=== PATIENT | female | born 1930 | race Caucasian/White ===

== ENCOUNTER 2016-12-14 23:18 | Observation (INO) ==
[2016-12-15 00:09] LABS: Bilirubin,Urine Negative (Negative); Blood,Urine Negative (Negative); Color,Urine Dark Yellow (Yellow); Glucose,Urine (UA) Normal (Normal); Ketones,Urine Negative (Negative); Leukocyte Esterase,Urine Moderate (Negative); Nitrite,Urine Negative (Negative); PH,Urine 5.5 pH Units (5.0-8.0); Protein,Urine 30 mg/dL (Neg-Trace); Specific Gravity,Urine 1.027 (1.010-1.025)
[2016-12-15 00:11] LABS: Bacteria,Urine None Seen per hpf (None-Few); Clarity,Urine Hazy (Clear); Hyaline Casts,Urine None Seen per lpf (None-Few); Squamous Epithelial Cell,Urine Many per lpf (None-Few)
[2016-12-15 00:11] LABS: Basophils % 0.2 %; Eosinophils # 0.1 K/mcL (0.0-0.6); Eosinophils % 1.6 %; Hematocrit 41.2 % (35.3-44.9); Immature Granulocytes % 0.4 % (0-4); Immature Platelets 1.2 % (1.1-6.1); Lymphocytes # 0.7 K/mcL (0.6-4.6); Lymphocytes % 14.4 %; Mean Corpuscular HGB Conc 31.6 g/dL (31.6-35.5); Mean Corpuscular Hemoglobin 28.8 pg (28.0-33.3); Mean Corpuscular Volume 91.4 fL (83.0-100.0); Mean Platelet Volume 9.1 fL (9.4-12.4); Monocytes # 0.5 K/mcL (0.0-1.3); Monocytes % 9.5 %; Neutrophils # 3.7 K/mcL (1.6-8.9); Platelet Count 145 K/mcL (140-400); Red Blood Count 4.51 M/mcL (3.82-4.97); Red Cell Distribution Width 14.9 % (11.5-14.5); Segmented Neutrophils % 73.9 %
[2016-12-15 00:22] LABS: BUN/Creatinine Ratio 22 (6-26); Blood Urea Nitrogen 22 mg/dL (7-20); Calcium 8.8 mg/dL (8.6-10.8); Carbon Dioxide 27 mEq/L (19-29); Chloride 105 mEq/L (98-109); Glucose 115 mg/dL (70-99); Osmolality,Calculated 294 (280-300); Potassium 4.2 mEq/L (3.5-4.5); Sodium 140 mEq/L (136-145); eGFR For African Americans > 60 (> 60); eGFR For Non-African Americans 51 (> 60)
--- NOTE | 2016-12-15 00:59 | Emergency Department Note ---
Disposition Clinical Impression: Hospital-acquired pneumonia Disposition: Admitted As Inpatient Condition: Good Time of Disposition: 01:41 Altered Mental Status HPI - General Chief Complaint: ED Altered Mental Status Stated Complaint: AMS Time Seen by Provider: 12/14/16 23:26 Source: patient, EMS Mode of arrival: ambulatory Limitations: altered mental status Nursing Notes Reviewed: Yes Vital Signs Reviewed: Yes - History of Present Illness HPI Narrative: Patient presented for confusion evaluation, family states that she has been having a persistent UTI that has been treated with 2 different kinds of antibiotics without clear resolution. Patient is reportedly been having visual hallucinations recently. Patient was recently discharged after being in the hospital about 6 days for UTI. Family reports that she has also been falling; described as sliding down her chair without a free fall. MD complaint: altered mental status, confusion Onset (ago): week(s) Consistency of Symptoms: getting worse - Related Data Home Medications Medication Instructions Recorded Confirmed Calcium Carbonate [Calcium] 1,000 mg PO DAILY 11/08/16 11/08/16 Lisinopril [Zestril] 10 mg PO DAILY 11/08/16 11/08/16 Multivitamin [Multi-Day Vitamins] 1 each PO DAILY 11/08/16 11/08/16 [place]-3/Dha/Epa/Fish Oil [Fish Oil 1,000 mg PO DAILY 11/08/16 11/08/16 1,000 mg Softgel] Ranitidine HCl [Zantac] 150 mg PO BID 11/08/16 11/08/16 Previous Rx's Medication Instructions Recorded Aspirin 325 mg PO BID #30 tablet 11/12/16 Ciprofloxacin HCl [Cipro] 250 mg PO BID #10 tab 11/12/16 OxyCODONE/APAP 5/325 [Percocet 1 each PO Q6HR PRN #10 tablet 11/12/16 5/325 MG] Sulfamethoxazole/Trimeth DS 1 each PO BID #20 tablet 12/06/16 [Bactrim DS] Allergies Allergy/AdvReac Type Severity Reaction Status Date / Time Penicillins Allergy Hives Verified 12/14/16 23:27 iodine AdvReac Gastrointestinal Verified 12/14/16 23:27 Upset All systems ED: reviewed and negative except as stated. Constitutional: Denies: fever, chills, weakness Cardiovascular: Denies: chest pain, dyspnea on exertion Respiratory: Denies: cough, dyspnea, wheezes Gastrointestinal: Reports: diarrhea. Denies: abdominal pain, nausea, vomiting Genitourinary: Denies: urgency, dysuria Neurological: Reports: confusion Past Medical History - Past Medical History Attestation: Yes The following information was validated with the patient. Source: patient Medical history: Reports: dementia, myocardial infarction, renal disease, other Surgical history: Reports: appendectomy, breast surgery, cholecystectomy, hysterectomy Psychiatric history: Reports: anxiety, depression MANAGER RETENTION history: Reports: no MANAGER RETENTION history - Social History Smoking Status: Never smoker Smokeless Tobacco Status: No Alcohol use: Reports: none Drug use: Reports: none Physical Exam - General Limitations: altered mental status - Head Head exam: atraumatic, normocephalic - Eye Eye exam: Present: normal appearance - Neck Neck exam: Present: normal inspection, trachea midline - Chest Chest inspection: Present: normal inspection, symmetric chest wall rise. Absent : tenderness - Respiratory Respiratory exam: Present: normal lung sounds bilaterally. Absent: respiratory distress, wheezes - Abdominal Exam Abdominal exam: Present: soft, Non-Tender. Absent: distention, guarding - Neurological Exam Neurological exam: Present: alert Course Course Narrative: 85 yo female presented by family with complaint of confusion, and visual hallucinations. Patient is reported to have been treated previously for urinary tract infection, initially she was on Bactrim and that was changed to Macrobid when culture sensitivity results came back. Patient has also been coughing and having diarrhea. On exam, patient is confused, nontoxic appearing , vital signs stable and afebrile. Screen patient for infectious process, treat and most likely admit patient to the hospitalist group. Family states that patient might have dementia but has not been officially diagnosed. - Reevaluation(s) Reevaluation #1: Patient has a pneumonia on chest x-ray, IV antibiotics started in the ED, hospital-acquired pneumonia diagnosis. Patient admitted to the hospitalist. Vital Signs Temperature 97.6 F 12/14/16 23:19 Pulse Rate 87 12/14/16 23:19 Respiratory Rate 18 12/14/16 23:19 Blood Pressure 146/71 12/14/16 23:19 O2 Sat by Pulse Oximetry 97 12/14/16 23:19 Temperature 98.1 F 12/15/16 04:41 Pulse Rate 86 12/15/16 04:41 Respiratory Rate 16 12/15/16 04:41 Blood Pressure 147/71 12/15/16 04:41 O2 Sat by Pulse Oximetry 97 12/15/16 04:41 Oxygen Delivery Oxygen Delivery Nasal Cannula Altered Mental Status - Medical Records Medical records reviewed: Yes I reviewed the patient's medical records. - Lab Data Lab results reviewed: Yes I reviewed the patient's lab results. Result diagrams: 12/15/16 00:03 12/15/16 00:03 Lab Results 12/14/16 12/15/16 12/15/16 Range/Units 23:53 00:03 00:03 WBC 5.1 (4.3-11.1) K/mcL RBC 4.51 (3.82-4.97) M/mcL Hgb 13.0 (11.5-15.4) g/dL Hct 41.2 (35.3-44.9) % MCV 91.4 (83.0-100.0) fL MCH 28.8 (28.0-33.3) pg MCHC 31.6 (31.6-35.5) g/dL RDW 14.9 H (11.5-14.5) % Plt Count 145 (140-400) K/mcL MPV 9.1 L (9.4-12.4) fL Immature Gran % 0.4 (0-4) % Seg Neutrophils % 73.9 % Lymphocytes % 14.4 % Monocytes % 9.5 % Eosinophils % 1.6 % Basophils % 0.2 % Neutrophils # 3.7 (1.6-8.9) K/mcL Lymphocytes # 0.7 (0.6-4.6) K/mcL Monocytes # 0.5 (0.0-1.3) K/mcL Eosinophils # 0.1 (0.0-0.6) K/mcL Basophils # 0.0 (0.0-0.2) K/mcL Immature Plt Fraction 1.2 (1.1-6.1) % Sodium 140 (136-145) mEq/L Potassium 4.2 (3.5-4.5) mEq/L Chloride 105 (98-109) mEq/L Carbon Dioxide 27 (19-29) mEq/L BUN 22 H (7-20) mg/dL Creatinine 1.02 (0.57-1.11) mg/dL Est GFR ( Amer) > 60 (> 60) Est GFR (Non-Af Amer) 51 L (> 60) BUN/Creatinine Ratio 22 (6-26) Glucose 115 H (70-99) mg/dL Calculated Osmolality 294 (280-300) Calcium 8.8 (8.6-10.8) mg/dL Troponin I (0-0.03) ng/mL Urine Color Dark Yellow (Yellow) Urine Clarity Hazy A (Clear) Urine pH 5.5 (5.0-8.0) pH Units Ur Specific [place] 1.027 H (1.010-1.025) Urine Protein 30 H (Neg-Trace) mg/dL Urine Glucose (UA) Normal (Normal) mg/dL Urine Ketones Negative (Negative) mg/dL Urine Blood Negative (Negative) Urine Nitrite Negative (Negative) Urine Bilirubin Negative (Negative) Urine Urobilinogen 2.0 H (Normal) mg/dL Ur Leukocyte Esterase Moderate H (Negative) Urine Microscopic RBC 5-15 H (0-3) per hpf Urine Microscopic WBC 5-15 H (0-3) per hpf Ur Squamous Epith Cells Many H (None-Few) per lpf Urine Bacteria None Seen (None-Few) per hpf Hyaline Casts None Seen (None-Few) per lpf Ur Culture Indicated? YES A (NO) 12/15/16 Range/Units 00:03 WBC (4.3-11.1) K/mcL RBC (3.82-4.97) M/mcL Hgb (11.5-15.4) g/dL Hct (35.3-44.9) % MCV (83.0-100.0) fL MCH (28.0-33.3) pg MCHC (31.6-35.5) g/dL RDW (11.5-14.5) % Plt Count (140-400) K/mcL MPV (9.4-12.4) fL Immature Gran % (0-4) % Seg Neutrophils % % Lymphocytes % % Monocytes % % Eosinophils % % Basophils % % Neutrophils # (1.6-8.9) K/mcL Lymphocytes # (0.6-4.6) K/mcL Monocytes # (0.0-1.3) K/mcL Eosinophils # (0.0-0.6) K/mcL Basophils # (0.0-0.2) K/mcL Immature Plt Fraction (1.1-6.1) % Sodium (136-145) mEq/L Potassium (3.5-4.5) mEq/L Chloride (98-109) mEq/L Carbon Dioxide (19-29) mEq/L BUN (7-20) mg/dL Creatinine (0.57-1.11) mg/dL Est GFR ( Amer) (> 60) Est GFR (Non-Af Amer) (> 60) BUN/Creatinine Ratio (6-26) Glucose (70-99) mg/dL Calculated Osmolality (280-300) Calcium (8.6-10.8) mg/dL Troponin I 0.01 (0-0.03) ng/mL Urine Color (Yellow) Urine Clarity (Clear) Urine pH (5.0-8.0) pH Units Ur Specific [place] (1.010-1.025) Urine Protein (Neg-Trace) mg/dL Urine Glucose (UA) (Normal) mg/dL Urine Ketones (Negative) mg/dL Urine Blood (Negative) Urine Nitrite (Negative) Urine Bilirubin (Negative) Urine Urobilinogen (Normal) mg/dL Ur Leukocyte Esterase (Negative) Urine Microscopic RBC (0-3) per hpf Urine Microscopic WBC (0-3) per hpf Ur Squamous Epith Cells (None-Few) per lpf Urine Bacteria (None-Few) per hpf Hyaline Casts (None-Few) per lpf Ur Culture Indicated? (NO) - Radiology Data Radiology results reviewed: Yes I reviewed the patient's radiology results. Attestation Statement - Attestation Attestation: For this encounter, I have reviewed the resident, ANIMATOR, or PA documentation, treatment plan, and medical decision making; and I have had face to face time with this patient. 85-year-old female brought in by family for concerns of altered mental status. Son states he tried to help patient up to the bathroom today when she slid to the ground, did not hit head or have loss of consciousness. While on the ground and patient was altered, having visual hallucinations, seeing her . Family states that this is very similar to previous presentations with urinary tract infections. Patient has been treated with antibiotics twice over the past 2 months. She has also had a cough over the past week that is not productive of sputum. Urinalysis has mildly elevated blood cells. Chest x-ray reveals possible pneumonia. She is started on antibiotics which would cover both pneumonia and urinary tract infection. Patient will be admitted to the hospital for further care and evaluation of altered mental status with likely community-acquired pneumonia.
[2016-12-15] MEDS ORDERED: Levofloxacin 750 MG/150 ML 750 MG/150 ML BAG IVPB ONE (01:10)
[2016-12-15] MEDS ORDERED: Naloxone 0.4 MG/ML INJ IVP PRN (04:34)
--- NOTE | 2016-12-15 04:36 | Internal Med History&Physical ---
Date of Encounter: 12/15/16 Time of Encounter: 04:20 Assessment and Plan (1) Altered mental status Current visit: Yes Status: Acute The patient has a decline in mental status per the family with hallucinations of her and delusions of having done things that she did not do. UTI vs. Sundowning vs. Undiagnosed dementia Patient has dementia listed in PMH, but family members state that she has never truly been diagnosed with dementia. Will assess change in mentation with treatment of acute bronchitis and possible UTI. Unable to ascertain Code status for certain. The son stated that he feels sure that his mom is a DNR, but did not know about intubation status. He stated he could bring paperwork with the patient's wishes tomorrow. Please reassess during the day when the son has the paperwork. Qualifiers: Altered mental status type: delirium Qualified Code(s): R41.0 - Disorientation, unspecified (2) Bronchitis Current visit: Yes Status: Acute The patient is afebrile and WBCs are 5.1, unlikely productive cough is due to a pneumonia. Chest XR: left greater than right basilar airspace disease. Lungs were clear to auscultation. Continue Ceftriaxone. (3) Urinary tract infection Current visit: No Status: Acute Probable UTI. The patient just had diagnosis of UTI starting last Saturday, was started on Bactrim from Saturday-Saturday and then was switch to Macrobid from Saturday until today. UA appears equivocal. Urine Culture pending and was taken in the ED. Continue Ceftriaxone. Qualifiers: Urinary tract infection type: acute cystitis Hematuria presence: with hematuria Qualified Code(s): N30.01 - Acute cystitis with hematuria (4) DVT prophylaxis Current visit: Yes Status: Acute SQ Heparin (5) HTN (hypertension) Current visit: No Status: Chronic Currently well controlled. Continue Lisinopril Qualifiers: Hypertension type: essential hypertension Qualified Code(s): I10 - Essential (primary) hypertension (6) Diarrhea Current visit: Yes Status: Acute Patient has been having what is described as loose stools for the past 2 days, but not described as liquid. C. Diff toxin ordered by the ED, has not been collected yet. Will treat accordingly pending results. Qualifiers: Diarrhea type: unspecified type Qualified Code(s): R19.7 - Diarrhea, unspecified Internal Medicine - H&P: HPI Chief complaint: AMS Admitted From: Emergency Dept Plans for Post Hospital Care: Home History of present illness: Ms. Gibbs is a 85 year old female with PMH significant for renal disease, hypertension, anxiety, depression, and previous OR in 2006 who presented to the ED for AMS. The patient's family is present and report that she has been having worsening mental function daily for the past week without drastic changes. She has had some increased confusion at night as well for a long time according to family members. They still believe her to be declining at this time in a gradual manner. The patient was reportedly diagnosed with a UTI one week ago at an urgent care and was treated with bactrim from Saturday-Saturday, she was then switched to Macrobid after cultures had returned. She was on Macrobid from Saturday until today. The patient has started complaining of a cough for the past couple of days that is only intermittently productive of a yellow sputum, and has been having diarrhea for the past 2 days. The diarrhea is described as loose stools, but not liquid in nature. Additionally the patient has been hallucinating at times seeing her who had years ago. She was not actively hallucinating while I was in the room. However the patient did seem confused at times and did refer to family members by inappropriate names despite being told multiple times the correct names. The family members state that she has also been under the delusion that she has been cooking all night. Past Med Surg Social Fam HX - Past Medical History Medical history: dementia, hypertension, myocardial infarction, renal disease, other Psychiatric history: anxiety, depression - Past Surgical History Surgical History: appendectomy, breast surgery (lumpectomy), cholecystectomy, hysterectomy - Social History Smoking Status: Never smoker Smokeless Tobacco Status: No Alcohol use: none Drug use: none - Family History Father Living Status: Hx Family Cancer: Yes (LIVER CANCER) Son Adopted: [place]: Silviano Gibbs Age: 56 Family Member Ethnicity: Non- Living Status: Still Living Hx Family Cardiac Disorders: No Hx Family Respiratory Disorders: No Hx Family Cancer: No Hx Family GI Disorders: Yes (Acid Reflux) Hx Family Genitourinary Disorders: No Hx Family Endocrine Disorder: Yes (partial tyroidectomy) Hx Family Musculoskeletal Disorders: Yes (Arthritis) Hx Family Neuromuscular Disorders: No Hx Family Neurologic Disorders: No Hx Family HEENT Disorders: No Hx Family Autoimmune Disorders: No Hx Family Reproductive Disorders: No Hx Family Psychosocial Disorders: No Hx Family Medical Disorders: No Internal Medicine - H&P: Meds Calcium Carbonate [Calcium] 1,000 mg PO DAILY 11/08/16 [History] Lisinopril [Zestril] 10 mg PO DAILY 11/08/16 [History] Multivitamin [Multi-Day Vitamins] 1 each PO DAILY 11/08/16 [History] [place]-3/Dha/Epa/Fish Oil [Fish Oil 1,000 mg Softgel] 1,000 mg PO DAILY 11/08/16 [History] Ranitidine HCl [Zantac] 150 mg PO BID 11/08/16 [History] Aspirin 325 mg PO BID #30 tablet 11/12/16 [Rx] Ciprofloxacin HCl [Cipro] 250 mg PO BID #10 tab 11/12/16 [Rx] OxyCODONE/APAP 5/325 [Percocet 5/325 MG] 1 each PO Q6HR PRN #10 tablet 11/12/16 [Rx] Sulfamethoxazole/Trimeth DS [Bactrim DS] 1 each PO BID #20 tablet 12/06/16 [Rx] Allergies Penicillins Allergy (Verified 12/14/16 23:27) Hives iodine Adverse Reaction (Verified 12/14/16 23:27) Gastrointestinal Upset All Systems PM: A 10-system review of systems was performed and is negative for pertinent findings except as documented above in the HPI. - Constitutional Constitutional: no chills, no fever(s), no night sweats - EENT Eyes: no change in vision, no discharge, no pain, no photophobia Ears: no ear discharge, no ear pain, no tinnitus Nose, mouth and throat: no dysphagia, no nasal discharge, no neck pain, no sore throat - Cardiovascular Cardiovascular ROS IM: no chest pain, no diaphoresis, no dyspnea, no lightheadedness, no palpitations, no syncope - Respiratory Respiratory: cough, no dyspnea, no wheezing, no excessive phlegm production - Gastrointestinal Gastrointestinal: diarrhea, no abdominal pain, no hematemesis, no hematochezia, no melena, no nausea, no vomiting - Genitourinary Genitourinary: no change in urinary stream, no dysuria, no flank pain, no hematuria - Musculoskeletal Musculoskeletal ROS IM: no numbness, no tingling - Integumentary Integumentary IM: no rash, no unusual bruising - Neurological Neurological ROS: confusion, no convulsions, no focal weakness, no numbness, no tingling, no tremor(s) - Psychiatric Psychiatric: behavioral changes, visual hallucinations - Hematologic/Lymphatic Hematologic/Lymphatic: no easy bruising - Constitutional Vitals: Temp Pulse Resp BP Pulse Ox 97.6 F 87 18 131/74 96 12/14/16 23:19 12/15/16 03:32 12/15/16 04:08 12/15/16 04:08 12/15/16 03:32 General appearance: Present: A&O X 2 (not oriented to time) - Head Head exam: Present: atraumatic, normocephalic - Eye Eye exam: Present: EOMI, PERRL, conjuntiva pink, sclera anicteric Pupils: Present: PERRL - Neck Neck exam general surgery: Present: supple, trachea midline. Absent: lymphadenopathy - Respiratory Respiratory exam: Present: CTAB (Coughing present with deep inspiration at times ). Absent: accessory muscle use, rales, rhonchi, wheezes - Cardiovascular Cardiovascular exam: Present: RRR, +S1, +S2. Absent: diastolic murmur, gallop, rubs, systolic murmur - GI/Abdominal GI/Abdominal exam: Present: normal bowel sounds, soft, no peritoneal signs. Absent: distended, tenderness - Extremities Exam Extremities exam: Present: warm, radial pulses palpable and symetrical. Absent : calf tenderness, cyanotic, pedal edema - Neurological Exam Neurological exam: Present: CN II-XII intact, no focal deficits. Absent: pronater drift, facial droop, speech deficit - Skin Skin exam: Present: dry, intact Internal Med - H&P Results - Labs CBC & Chem 7: 12/15/16 00:03 12/15/16 00:03 - Attending Attestation I examined this patient and my medical decision-making was reviewed with the PRECIPITATOR/PA/Advanced Practice Nurse/Resident Physician. I agree with the documented findings, disposition and treatment plan as described except to the extent set forth below.
[2016-12-15] MEDS: *HR* OxyCODONE/APAP 5/325 TABLET PO PRN (05:13)
[2016-12-15] MEDS ORDERED: Famotidine 20 MG TABLET PO SCH (07:30)
[2016-12-15] MEDS: Aspirin 325 MG TABLET PO SCH ×2 (07:36→19:55)
[2016-12-15] MEDS: *HR* Heparin 5,000 UNIT/ML VIAL SQ SCH ×2 (07:37→15:06)
--- NOTE | 2016-12-15 11:30 | Event Note ---
<Megan Draper - Last Filed: 12/15/16 11:26> Date of Encounter: 12/15/16 Time of Encounter: 08:15 Ms. Suresh presented to ED with AMS, cough, and diarrhea. She is accompanied by no family in the room this morning. Pt is oriented to person and place, but unable to recall date and states that she is unsure of why she was brought to the hospital in the first place. Pt admits to having a cough which is productive intermittently with mostly white sputum. She denies having any chest pain, shortness of breath, urinary symptoms, nausea, or vomiting. Exam: Head: normocephalic, atraumatic Eyes: sclera anicteric, PERRL ENT: Mucous membranes moist Neck: Supple, trachea midline Lungs: CTAB, no rhonchi, rales, wheezing Cardiac: RRR, +S1, +S2 Abdomen: Bowel sounds normal, soft, nontender Extremities: No pedal edema, warm, radial pulses palpable and symmetrical Neuro: No focal deficits Skin: Dry, intact A/P: Altered Mental Status: Decline in mental status per family. Dementia is listed in PMH but family reports this has never truly been diagnosed Possibly due to UTI vs. undiagnosed dementia Urinalysis with evidence of UTI, cultures pending. Rocephin for antibiotic coverage now, will adjust based on sensitivities Pneumonia: CXR demonstrated Left greater than Right basilar airspace disease Will add Azithromycin for antibiotic coverage UTI: Pt had diagnosis of UTI starting last Saturday, was started on Bactrim from Saturday -Saturday, then switched to Macrobid from Saturday until today. Urinalysis suggestive of UTI, urine cultures are pending, Rocephin for antibiotic coverage now, will adjust based on sensitivities Diarrhea: Pt has been having loose stools for the past 2 day, not described as liquid C.Diff toxin ordered, but not yet collected Will treat pending results HTN: Continue home medications DVT prophylaxis: Heparin SQ <Mark Ron - Last Filed: 12/15/16 19:43> Date of Encounter: 12/15/16 I examined this patient and my medical decision-making was reviewed with the DIRECTOR VIDEO/PA/Advanced Practice Nurse/Resident Physician. I agree with the documented findings, disposition and treatment plan as described except to the extent set forth below.
[2016-12-15] MEDS: Azithromycin 500 MG in D5% in Water 250 ML IVPB SCH (11:39)
[2016-12-16] MEDS: *HR* Heparin 5,000 UNIT/ML VIAL SQ SCH ×4 (00:26→23:03)
[2016-12-16 04:29] LABS: Basophils % 0.4 %; Eosinophils # 0.2 K/mcL (0.0-0.6); Eosinophils % 3.8 %; Hematocrit 36.4 % (35.3-44.9); Hemoglobin 11.6 g/dL (11.5-15.4); Immature Granulocytes % 0.4 % (0-4); Lymphocytes # 1.8 K/mcL (0.6-4.6); Mean Corpuscular HGB Conc 31.9 g/dL (31.6-35.5); Mean Corpuscular Hemoglobin 29.1 pg (28.0-33.3); Mean Corpuscular Volume 91.2 fL (83.0-100.0); Mean Platelet Volume 9.5 fL (9.4-12.4); Monocytes # 0.6 K/mcL (0.0-1.3); Monocytes % 13.3 %; Neutrophils # 1.9 K/mcL (1.6-8.9); Platelet Count 132 K/mcL (140-400); Red Blood Count 3.99 M/mcL (3.82-4.97); Segmented Neutrophils % 42.1 %
[2016-12-16 04:43] LABS: BUN/Creatinine Ratio 25 (6-26); Blood Urea Nitrogen 21 mg/dL (7-20); Calcium 8.3 mg/dL (8.6-10.8); Carbon Dioxide 24 mEq/L (19-29); Chloride 107 mEq/L (98-109); Glucose 109 mg/dL (70-99); Osmolality,Calculated 292 (280-300); Potassium 4.3 mEq/L (3.5-4.5); Sodium 139 mEq/L (136-145); eGFR For African Americans > 60 (> 60); eGFR For Non-African Americans > 60 (> 60)
[2016-12-16] MEDS: Famotidine 20 MG TABLET PO SCH (06:31)
--- NOTE | 2016-12-16 08:00 | Internal Med Progress Note ---
<Megan Draper - Last Filed: 12/16/16 12:16> Date of Encounter: 12/16/16 Time of Encounter: 07:15 - Assessment and plan (1) Altered mental status Current Visit: Yes Status: Acute Assessment and plan: Decline in mental status per family. Dementia has never truly been diagnosed although listed in PMH Possibly due to UTI vs undiagnosed dementia Urine cultures demonstrated no growth, pt was on antibiotics prior to admission to the hospital Qualifiers: Altered mental status type: delirium Qualified Code(s): R41.0 - Disorientation, unspecified (2) Pneumonia Current Visit: Yes Status: Acute Assessment and plan: CXR demonstrated Left greater than right basilar airspace disease Rocephin and Azithromycin for antibiotic coverage Qualifiers: Pneumonia type: due to unspecified organism Laterality: bilateral Lung location: lower lobe of lung Qualified Code(s): J18.9 - Pneumonia, unspecified organism (3) Urinary tract infection Current Visit: No Status: Acute Assessment and plan: Pt had diagnosis of UTI starting last Saturday, was started on Bactrim from Saturday -Saturday, then switched to Macrobid from Saturday until admission Urinalysis was suggestive of UTI, urine cultures demonstrated no growth, pt was on antibiotics prior to admission Qualifiers: Urinary tract infection type: acute cystitis Hematuria presence: with hematuria Qualified Code(s): N30.01 - Acute cystitis with hematuria (4) Diarrhea Current Visit: Yes Status: Acute Assessment and plan: C.Diff toxin was negative Will continue to monitor Qualifiers: Diarrhea type: unspecified type Qualified Code(s): R19.7 - Diarrhea, unspecified (5) HTN (hypertension) Current Visit: No Status: Chronic Assessment and plan: Continue home medications Qualifiers: Hypertension type: essential hypertension Qualified Code(s): I10 - Essential (primary) hypertension (6) DVT prophylaxis Current Visit: Yes Status: Acute Assessment and plan: Heparin SQ - Subjective Interval history: Pt is oriented to person this morning. She is aware she is in the hospital but does not know why or which hospital she is in. She knows that today is her birthday but is unable to recall the year. She states that she is having no pain at this time. Pt reports she is feeling weak and tired. She denies nausea , vomiting, diarrhea, chest pain, shortness of breath. Valdez catheter is in place. - Constitutional Vitals: Temp Pulse Resp BP Pulse Ox 98.0 F 65 17 143/80 96 12/16/16 07:23 12/16/16 07:23 12/16/16 07:23 12/16/16 07:23 12/16/16 07:23 General appearance: Present: A&O X 2 (Pt knows name, aware she is in hospital but not sure which one and cannot recall year) - Head Head exam: Present: atraumatic, normocephalic - Eye Eye exam: Present: PERRL, conjuntiva pink, sclera anicteric Pupils: Present: PERRL - Neck Neck exam general surgery: Present: supple, trachea midline. Absent: lymphadenopathy - Respiratory Respiratory exam: Present: rhonchi (Bibasilar) - Cardiovascular Cardiovascular exam: Present: RRR, +S1, +S2. Absent: diastolic murmur, gallop, rubs, systolic murmur - GI/Abdominal GI/Abdominal exam: Present: normal bowel sounds, soft, no peritoneal signs. Absent: distended, tenderness - Extremities Exam Extremities exam: Present: warm, radial pulses palpable and symetrical. Absent : calf tenderness, cyanotic, pedal edema - Neurological Exam Neurological exam: Present: alert, CN II-XII intact, no focal deficits. Absent : pronater drift, facial droop, speech deficit - Skin Skin exam: Present: dry, intact. Absent: rash Internal Medicine: Result - Labs CBC & Chem 7: 12/16/16 03:42 12/16/16 03:42 Labs: Short CBC 12/16/16 Range/Units 03:42 WBC 4.5 (4.3-11.1) K/mcL Hgb 11.6 (11.5-15.4) g/dL Hct 36.4 (35.3-44.9) % Plt Count 132 L (140-400) K/mcL Neutrophils # 1.9 (1.6-8.9) K/mcL BMP 12/16/16 03:42 Sodium 139 Potassium 4.3 Chloride 107 Carbon Dioxide 24 BUN 21 H Creatinine 0.84 Glucose 109 H Calcium 8.3 L Consult Discharge Plan - Plan Referrals: Rob Cole MD [Primary Care Provider] - <Mark Ron - Last Filed: 12/16/16 15:58> Date of Encounter: 12/16/16 - Assessment and plan (1) Pneumococcal pneumonia Current Visit: Yes Status: Acute Assessment and plan: Coronary coronary pneumonia likely caused by pneumococcus. We will treat her with ceftriaxone and azithromycin. Follow-up blood cultures and sensitivities. Qualifiers: Laterality: bilateral Lung location: lower lobe of lung Qualified Code(s) : J13 - Pneumonia due to Streptococcus pneumoniae - Constitutional Vitals: Temp Pulse Resp BP Pulse Ox 97.5 F L 70 16 136/72 95 12/16/16 14:41 12/16/16 14:41 12/16/16 14:41 12/16/16 14:41 12/16/16 14:41 Internal Medicine: Result - Labs CBC & Chem 7: 12/16/16 03:42 12/16/16 03:42 Labs: Short CBC 12/16/16 Range/Units 03:42 WBC 4.5 (4.3-11.1) K/mcL Hgb 11.6 (11.5-15.4) g/dL Hct 36.4 (35.3-44.9) % Plt Count 132 L (140-400) K/mcL Neutrophils # 1.9 (1.6-8.9) K/mcL BMP 12/16/16 03:42 Sodium 139 Potassium 4.3 Chloride 107 Carbon Dioxide 24 BUN 21 H Creatinine 0.84 Glucose 109 H Calcium 8.3 L - Attending Attestation I examined this patient and my medical decision-making was reviewed with the Resident Physician. I agree with the documented findings, disposition and treatment plan as described except to the extent set forth below. The patient's mental status has improved today. She is awake alert oriented and conversant. She has mild dementia. Plan we will continue treatment for healthcare associated pneumonia likely secondary to pneumococcus infection with ceftriaxone and azithromycin. Continue treatment for UTI. Discontinue Valdez catheter. We will get PT OT and psychiatric social worker supervisor consult.
[2016-12-16] MEDS: Aspirin 325 MG TABLET PO SCH ×2 (09:10→21:08)
[2016-12-16] MEDS: Azithromycin 500 MG in D5% in Water 250 ML IVPB SCH (09:59)
[2016-12-16] MEDS: Ipratropium/Albuterol Neb 3 ML IH SCH ×3 (10:59→22:46)
[2016-12-16] MEDS: MethylPREDNISolone 40 MG/ML VIAL IVP SCH ×2 (18:36→23:03)
[2016-12-17] MEDS: Ipratropium/Albuterol Neb 3 ML IH SCH ×4 (03:51→22:58)
[2016-12-17 04:51] LABS: Hematocrit 39.6 % (35.3-44.9); Hemoglobin 12.6 g/dL (11.5-15.4); Mean Corpuscular HGB Conc 31.8 g/dL (31.6-35.5); Mean Platelet Volume 9.5 fL (9.4-12.4); Platelet Count 131 K/mcL (140-400); Red Blood Count 4.35 M/mcL (3.82-4.97); Red Cell Distribution Width 14.6 % (11.5-14.5)
[2016-12-17 05:10] LABS: BUN/Creatinine Ratio 24 (6-26); Blood Urea Nitrogen 25 mg/dL (7-20); Calcium 8.5 mg/dL (8.6-10.8); Carbon Dioxide 23 mEq/L (19-29); Chloride 105 mEq/L (98-109); Glucose 256 mg/dL (70-99); Osmolality,Calculated 303 (280-300); Potassium 4.4 mEq/L (3.5-4.5); Sodium 140 mEq/L (136-145); eGFR For African Americans > 60 (> 60); eGFR For Non-African Americans 50 (> 60)
[2016-12-17 06:05] LABS: Lymphocytes # 0.8 K/mcL (0.6-4.6); Monocytes # 0.1 K/mcL (0.0-1.3); Neutrophils # 2.8 K/mcL (1.6-8.9); Platelet Estimate Slight Decrease (Normal); Reactive Lymphocytes Present (Not Present)
[2016-12-17] MEDS: *HR* Heparin 5,000 UNIT/ML VIAL SQ SCH ×3 (08:07→23:36)
[2016-12-17] MEDS: Famotidine 20 MG TABLET PO SCH (08:07)
[2016-12-17] MEDS: Aspirin 325 MG TABLET PO SCH ×2 (08:07→20:11)
[2016-12-17] MEDS: MethylPREDNISolone 40 MG/ML VIAL IVP SCH (08:08)
[2016-12-17] MEDS ORDERED: D5% in Water 1,000 ML IV PRN (08:53)
[2016-12-17] MEDS ORDERED: *HR* Dextrose 50 % in Water (Syg) 50 ML SYRINGE IVP PRN (08:53)
[2016-12-17] MEDS ORDERED: Dextrose Gel 15 GM PO PRN ×2 (08:53)
[2016-12-17] MEDS ORDERED: Insulin DETEMIR 100 UNIT/ML X5UNITS SQ SCH (09:00)
--- NOTE | 2016-12-17 09:29 | Electrocardiograph Report ---
[facility] Test Date: 2016-12-14 Pat Name: Angelita Gibbs Department: 105 Room: 3B11 Gender: F Stunt Person: KEENAN : [id number] Requested By: Vj Jerome Order Number: [id number] Reading MD: Anibal Whiting MD Measurements Intervals [place] Rate: 82 P: 42 RI: 175 QRS: 12 QRSD: 98 T: 61 QT: 360 QTc: 398 Interpretive Statements SINUS RHYTHM Electronically Signed On 12-17-16 09:28:03 EST by Anibal Whiting MD
[2016-12-17] MEDS: Azithromycin 500 MG in D5% in Water 250 ML IVPB SCH (09:57)
[2016-12-17] MEDS: Insulin LISPRO 300 UNITS/3 ML VIAL SQ SCH ×2 (13:42→18:15)
--- NOTE | 2016-12-17 19:33 | Internal Med Progress Note ---
Date of Encounter: 12/17/16 Time of Encounter: 15:00 - Assessment and plan (1) Pneumococcal pneumonia Current Visit: Yes Status: Acute Assessment and plan: Community-acquired pneumonia likely caused by pneumococcus. We will treat her with ceftriaxone and azithromycin. Follow-up blood cultures and sensitivities. Qualifiers: Laterality: bilateral Lung location: lower lobe of lung Qualified Code(s) : J13 - Pneumonia due to Streptococcus pneumoniae (2) Physical deconditioning Current Visit: Yes Status: Acute Assessment and plan: PTOT. Social work consult for placement. She is agreeable to go to subacute rehabilitation. (3) Morbid obesity with BMI of 40.0-44.9, adult Current Visit: Yes Status: Acute Assessment and plan: Outpatient follow-up. Exercise regimen. (4) Altered mental status Current Visit: Yes Status: Acute Assessment and plan: She likely has mild dementia. Physical decline likely related to acute infection. Now has improved, close to baseline. We will avoid sedative medication. Decline in mental status per family. Dementia has never truly been diagnosed although listed in PMH Possibly due to UTI vs undiagnosed dementia Urine cultures demonstrated no growth, pt was on antibiotics prior to admission to the hospital Qualifiers: Altered mental status type: delirium Qualified Code(s): R41.0 - Disorientation, unspecified (5) Urinary tract infection Current Visit: No Status: Acute Assessment and plan: Pt had diagnosis of UTI starting last Saturday, was started on Bactrim from Saturday -Saturday, then switched to Macrobid from Saturday until admission Urinalysis was suggestive of UTI, urine culture during this admission showed no growth, however she had received several courses of antibiotics previously. On review of her medical record she had a urine culture prior to this admission in December 06 which grew enterococcus sensitive to ampicillin. We will continue with ceftriaxone which should be adequate to cover enterococcus. Qualifiers: Urinary tract infection type: acute cystitis Hematuria presence: with hematuria Qualified Code(s): N30.01 - Acute cystitis with hematuria (6) HTN (hypertension) Current Visit: No Status: Chronic Assessment and plan: Continue home medications Qualifiers: Hypertension type: essential hypertension Qualified Code(s): I10 - Essential (primary) hypertension (7) DVT prophylaxis Current Visit: Yes Status: Acute Assessment and plan: Heparin SQ - Subjective Interval history: Patient's mental status has improved significantly. She denies headache and vision loss. She presented 2 days ago with altered mental status was thought to be secondary to UTI, now she is close to baseline. - Constitutional Vitals: Temp Pulse Resp BP Pulse Ox 98.2 F 85 16 171/71 99 12/17/16 16:14 12/17/16 16:14 12/17/16 16:20 12/17/16 16:14 12/17/16 16:20 General appearance: Present: A&O X 2 (Pt knows name, aware she is in hospital but not sure which one and cannot recall year) - Respiratory Respiratory exam: Present: CTAB. Absent: accessory muscle use, rales, rhonchi, wheezes - Cardiovascular Cardiovascular exam: Present: RRR, +S1, +S2. Absent: diastolic murmur, gallop, rubs, systolic murmur - GI/Abdominal GI/Abdominal exam: Present: normal bowel sounds, soft, no peritoneal signs. Absent: distended, tenderness - Extremities Exam Extremities exam: Present: warm, radial pulses palpable and symetrical. Absent : calf tenderness, cyanotic, pedal edema - Skin Skin exam: Present: dry, intact Internal Medicine: Result - Labs CBC & Chem 7: 12/17/16 04:16 12/17/16 04:16 Labs: Short CBC 12/17/16 Range/Units 04:16 WBC 3.7 L (4.3-11.1) K/mcL Hgb 12.6 (11.5-15.4) g/dL Hct 39.6 (35.3-44.9) % Plt Count 131 L (140-400) K/mcL Neutrophils # 2.8 (1.6-8.9) K/mcL BMP 12/17/16 04:16 Sodium 140 Potassium 4.4 Chloride 105 Carbon Dioxide 23 BUN 25 H Creatinine 1.04 Glucose 256 H Calcium 8.5 L Consult Discharge Plan - Plan Referrals: Rob Cole MD [Primary Care Provider] - 01/02/17 9:40 am
[2016-12-18] MEDS: Ipratropium/Albuterol Neb 3 ML IH SCH ×3 (03:53→16:24)
[2016-12-18 04:54] LABS: Basophils % 0.1 %; Eosinophils % 0.1 %; Hematocrit 36.5 % (35.3-44.9); Hemoglobin 11.8 g/dL (11.5-15.4); Immature Granulocytes % 0.4 % (0-4); Lymphocytes # 1.7 K/mcL (0.6-4.6); Mean Corpuscular HGB Conc 32.3 g/dL (31.6-35.5); Mean Corpuscular Hemoglobin 29.2 pg (28.0-33.3); Mean Corpuscular Volume 90.3 fL (83.0-100.0); Mean Platelet Volume 9.7 fL (9.4-12.4); Monocytes # 0.6 K/mcL (0.0-1.3); Monocytes % 6.2 %; Neutrophils # 7.7 K/mcL (1.6-8.9); Platelet Count 162 K/mcL (140-400); Red Blood Count 4.04 M/mcL (3.82-4.97); Red Cell Distribution Width 14.9 % (11.5-14.5); Segmented Neutrophils % 76.2 %
[2016-12-18 05:02] LABS: BUN/Creatinine Ratio 35 (6-26); Blood Urea Nitrogen 28 mg/dL (7-20); Calcium 8.2 mg/dL (8.6-10.8); Carbon Dioxide 25 mEq/L (19-29); Chloride 107 mEq/L (98-109); Glucose 144 mg/dL (70-99); Osmolality,Calculated 296 (280-300); Potassium 3.9 mEq/L (3.5-4.5); Sodium 139 mEq/L (136-145); eGFR For African Americans > 60 (> 60); eGFR For Non-African Americans > 60 (> 60)
[2016-12-18] MEDS: Insulin LISPRO 300 UNITS/3 ML VIAL SQ SCH ×3 (09:02→20:23)
[2016-12-18] MEDS: Aspirin 325 MG TABLET PO SCH (09:12)
[2016-12-18] MEDS: *HR* Heparin 5,000 UNIT/ML VIAL SQ SCH ×2 (09:13→19:02)
[2016-12-18] MEDS: Famotidine 20 MG TABLET PO SCH (09:13)
[2016-12-18] MEDS: Azithromycin 500 MG in D5% in Water 250 ML IVPB SCH (10:34)
[2016-12-18] MEDS: *HR* OxyCODONE/APAP 5/325 TABLET PO PRN (10:40)
--- NOTE | 2016-12-18 12:12 | Internal Med Progress Note ---
Date of Encounter: 12/18/16 Time of Encounter: 09:30 - Assessment and plan (1) Pneumococcal pneumonia Current Visit: Yes Status: Acute Assessment and plan: Community-acquired pneumonia likely caused by pneumococcus. We will treat her with ceftriaxone and azithromycin. Follow-up blood cultures and sensitivities. On examination, patient with fair to good aeration throughout. She denies shortness of breath. She is on room air. OT and PT have recommended ECF placement, awaiting placement. She states she lives with her son and his . sales agent business services on board. Medically speaking, she is ready for discharge, awaiting ECF placement. ITS Impressions Chest X-Ray 12/14/16 23:26 IMPRESSION: [id number]-right basilar airspace disease. D/ / Hussain Calloway MD / Hussain Calloway MD Interpreting Provider: Hussain Calloway MD Qualifiers: Laterality: bilateral Lung location: lower lobe of lung Qualified Code(s) : J13 - Pneumonia due to Streptococcus pneumoniae (2) Physical deconditioning Current Visit: Yes Status: Acute Assessment and plan: PTOT. Social work consult for placement. She is agreeable to go to subacute rehabilitation. (3) Altered mental status Current Visit: Yes Status: Resolved Assessment and plan: She likely has mild dementia. Physical decline likely related to acute infection. Now has improved, and she appears to be consistent with her baseline. She is able to follow conversation. She is confused about what year it is but is otherwise able to answer orientation questions. Qualifiers: Altered mental status type: delirium Qualified Code(s): R41.0 - Disorientation, unspecified (4) DVT prophylaxis Current Visit: Yes Status: Acute Assessment and plan: Heparin SQ (5) Morbid obesity with BMI of 40.0-44.9, adult Current Visit: Yes Status: Chronic Assessment and plan: Outpatient follow-up. Exercise regimen. (6) Urinary tract infection Current Visit: No Status: Acute Assessment and plan: Pt had diagnosis of UTI starting last Saturday, was started on Bactrim from Saturday -Saturday, then switched to Macrobid from Saturday until admission Urinalysis was suggestive of UTI, urine culture during this admission showed no growth, however she had received several courses of antibiotics previously. On review of her medical record she had a urine culture prior to this admission in December 06 which grew enterococcus sensitive to ampicillin. We will continue with ceftriaxone which should be adequate to cover enterococcus. Qualifiers: Urinary tract infection type: acute cystitis Hematuria presence: with hematuria Qualified Code(s): N30.01 - Acute cystitis with hematuria (7) HTN (hypertension) Current Visit: No Status: Chronic Assessment and plan: Controlled, we will continue to trend and adjust medications as indicated. Continue home medications Qualifiers: Hypertension type: essential hypertension Qualified Code(s): I10 - Essential (primary) hypertension - Subjective Interval history: Patient seen and examined as she was working with physical therapy. Patient alert and interactive. She is currently oriented 2, she is aware she is at the hospital and she is aware that she is 86. She denies pain or shortness of breath. She states she ate all of her breakfast. - Constitutional Vitals: Temp Pulse Resp BP Pulse Ox 97.7 F 87 15 149/80 98 12/18/16 07:21 12/18/16 07:21 12/18/16 07:21 12/18/16 07:21 12/18/16 07:21 General appearance: Present: A&O X 2 (Pt knows name, aware she is in hospital but not sure which one and cannot recall year) - Head Head exam: Present: atraumatic, normocephalic - Eye Eye exam: Present: PERRL, conjuntiva pink, sclera anicteric Pupils: Present: PERRL - Neck Neck exam general surgery: Present: supple, trachea midline. Absent: lymphadenopathy - Respiratory Respiratory exam: Present: decreased breath sounds. Absent: accessory muscle use, rales, respiratory distress, rhonchi, wheezes - Cardiovascular Cardiovascular exam: Present: RRR, +S1, +S2. Absent: diastolic murmur, gallop, rubs, systolic murmur - GI/Abdominal GI/Abdominal exam: Present: normal bowel sounds, soft, no peritoneal signs. Absent: distended, tenderness - Extremities Exam Extremities exam: Present: warm, radial pulses palpable and symetrical. Absent : calf tenderness, cyanotic, pedal edema - Neurological Exam Neurological exam: Present: alert, CN II-XII intact, no focal deficits, strengths equal and symetr throughout. Absent: pronater drift, facial droop, speech deficit - Skin Skin exam: Present: dry, intact, pallor, warm Internal Medicine: Result - Labs CBC & Chem 7: 12/18/16 03:33 12/18/16 03:33 Labs: Short CBC 12/18/16 Range/Units 03:33 WBC 10.1 D (4.3-11.1) K/mcL Hgb 11.8 (11.5-15.4) g/dL Hct 36.5 (35.3-44.9) % Plt Count 162 (140-400) K/mcL Neutrophils # 7.7 (1.6-8.9) K/mcL BMP 12/18/16 03:33 Sodium 139 Potassium 3.9 Chloride 107 Carbon Dioxide 25 BUN 28 H Creatinine 0.81 Glucose 144 H Calcium 8.2 L Consult Discharge Plan - Plan Referrals: Rob Cole MD [Primary Care Provider] - 01/02/17 9:40 am
[2016-12-18 16:17] VITALS: BP 148/77
--- NOTE | 2016-12-18 18:22 | Discharge Summary ---
Date of Encounter: 12/18/16 Time of Encounter: 18:16 - Discharge Diagnosis (1) Pneumococcal pneumonia Priority: Primary Status: Acute Qualifiers: Laterality: bilateral Lung location: lower lobe of lung Qualified Code(s) : J13 - Pneumonia due to Streptococcus pneumoniae (2) Physical deconditioning Priority: Secondary Status: Acute (3) Altered mental status Priority: Secondary Status: Resolved Qualifiers: Altered mental status type: delirium Qualified Code(s): R41.0 - Disorientation, unspecified (4) Morbid obesity with BMI of 40.0-44.9, adult Priority: Secondary Status: Chronic (5) Urinary tract infection Priority: Secondary Status: Acute Qualifiers: Urinary tract infection type: acute cystitis Hematuria presence: with hematuria Qualified Code(s): N30.01 - Acute cystitis with hematuria (6) HTN (hypertension) Priority: Secondary Status: Chronic Qualifiers: Hypertension type: essential hypertension Qualified Code(s): I10 - Essential (primary) hypertension (7) Diarrhea Priority: Secondary Status: Resolved Qualifiers: Diarrhea type: unspecified type Qualified Code(s): R19.7 - Diarrhea, unspecified - Discharge Medications Prescriptions: Levofloxacin [Levaquin] 500 mg PO DAILY #7 tablet Oxycodone HCl/Acetaminophen [Percocet 5-325 mg Tablet] 1 tab PO Q6H PRN #7 tablet PRN Reason: Pain Home Medications: Calcium Carbonate [Calcium] 1,000 mg PO DAILY 11/08/16 [History] Lisinopril [Zestril] 10 mg PO DAILY 11/08/16 [History] Multivitamin [Multi-Day Vitamins] 1 tab PO DAILY 11/08/16 [History] [place]-3/Dha/Epa/Fish Oil [Fish Oil 1,000 mg Softgel] 1,000 mg PO DAILY 11/08/16 [History] Ranitidine HCl [Zantac] 150 mg PO BID 11/08/16 [History] Ascorbate Calcium [Vitamin C] 500 mg PO DAILY 12/15/16 [History] Aspirin [Ecotrin] 325 mg PO DAILY 12/15/16 [History] Levofloxacin [Levaquin] 500 mg PO DAILY #7 tablet 12/18/16 [Rx] Oxycodone HCl/Acetaminophen [Percocet 5-325 mg Tablet] 1 tab PO Q6H PRN #7 tablet 12/18/16 [Rx] Allergies/Adverse Reactions: Allergies Penicillins Allergy (Verified 12/14/16 23:27) Hives iodine Adverse Reaction (Verified 12/14/16 23:27) Gastrointestinal Upset Date of admission: 12/15/16 03:50 Primary care physician: Rob Cole MD Consults: 12/15/16 04:57 Consult to [employer] [CONS] Routine Reason for SW Consult: Family is interested in ECF or home health. Family states she's had multiple UTI's, multiple falls. Family states it has been hard to care for her on their own. Money is a concern. 12/16/16 10:40 Consult to Occupational Therapy [CONS] Routine Comment: Evaluate, develop and implement POC Consult to Physical Therapy [CONS] Routine Comment: Evaluate, develop and implement POC Discharging clinician: Estefanía Sow Anticipated date of discharge: 12/18/16 - Patient Status Disposition: Transfer SNF Condition: Good Functional capacity at discharge: uses cane/walker Overall status at discharge: patient is progressing back to baseline - Discharge Instructions Follow Up With: Rob Cole MD [Primary Care Provider] - 01/02/17 9:40 am - Diet and Activity Activity: as per physical therapy Diet: advance to your usual diet Hospital course: Ms. Gibbs is a 86 year old female brought to ED for acute mental status change. She was subsequently admitted for further evaluation and treatment. Ms. Gibbs was admitted to the medical floor. She was placed on IV abx for presumed UTI and pneumonia. She tolerated this well with some improvement. She was evaluated by PT/OT and found to need SNF placement and discharged today in stable condition. - Time Spent with Patient Total time spent providing and/or coordinating discharge services: - Constitutional Vitals: Temp Pulse Resp BP Pulse Ox 98.1 F 72 16 148/77 97 12/18/16 16:16 12/18/16 16:16 12/18/16 16:24 12/18/16 16:16 12/18/16 16:24 General appearance: Present: A&O X 2 (Pt knows name, aware she is in hospital but not sure which one and cannot recall year) Exam: See exam of progress note today.
--- NOTE | 2016-12-18 18:27 | Physician Discharge Referral ---
ExtendedCare Referral Info Transfer To: [facility] Provider in Charge after Transfer: Other (Physician at facility or PCP) Institutional Level of Care: Skilled - Diagnosis (1) Pneumococcal pneumonia Status: Acute (2) Physical deconditioning Status: Acute (3) Altered mental status Status: Resolved (4) Morbid obesity with BMI of 40.0-44.9, adult Status: Chronic (5) Urinary tract infection Status: Acute (6) HTN (hypertension) Status: Chronic (7) Diarrhea Status: Resolved - Transfer Medications Prescriptions: Levofloxacin [Levaquin] 500 mg PO DAILY #7 tablet Oxycodone HCl/Acetaminophen [Percocet 5-325 mg Tablet] 1 tab PO Q6H PRN #7 tablet PRN Reason: Pain Home Medications: Calcium Carbonate [Calcium] 1,000 mg PO DAILY 11/08/16 [History] Lisinopril [Zestril] 10 mg PO DAILY 11/08/16 [History] Multivitamin [Multi-Day Vitamins] 1 tab PO DAILY 11/08/16 [History] [place]-3/Dha/Epa/Fish Oil [Fish Oil 1,000 mg Softgel] 1,000 mg PO DAILY 11/08/16 [History] Ranitidine HCl [Zantac] 150 mg PO BID 11/08/16 [History] Ascorbate Calcium [Vitamin C] 500 mg PO DAILY 12/15/16 [History] Aspirin [Ecotrin] 325 mg PO DAILY 12/15/16 [History] Levofloxacin [Levaquin] 500 mg PO DAILY #7 tablet 12/18/16 [Rx] Oxycodone HCl/Acetaminophen [Percocet 5-325 mg Tablet] 1 tab PO Q6H PRN #7 tablet 12/18/16 [Rx] Allergies/Adverse Reactions: Allergies Penicillins Allergy (Verified 12/14/16 23:27) Hives iodine Adverse Reaction (Verified 12/14/16 23:27) Gastrointestinal Upset - Respiratory Orders Other (Keep saturation greater than 90%) Smoking Cessation: Smoking cessation has been advised. For more information, call the [place] Tobacco Quit Line at 9-151-LLQX-NOW. - Lab Orders Lab Orders: 2 Step Mantoux Test per State regulation - Ancillary Orders May use pressure relief devices daily prn, May consult with Dentist, Complex Human Resources Manager, Employment Service Specialist PRN - Advance Directives Code Status: DNR-Arrest/Don't Intubate - Mobility Orders Ambulate - Rehabiliation Orders Rehab Potential: Fair Rehab Orders: Evaluation for Physical Therapy, Evaluation for Occupational Therapy - Treatments Skin tear care topically daily PRN per policy, May check for fecal impaction rectally daily PRN, Fleet enema rectally every other day PRN cleansing purposes - Diet Orders Regular CERTIFICATION: I certify that the transfer of the above named patient to an Extended Care Facility is necessary for the continuing treatment of the diagnosis listed. The above information is true and accurate reflection of patient's current condition. Confidential - Redisclosure prohibited without a patient's written consent.
[2016-12-19] MEDS ORDERED: Azithromycin 250 MG TABLET PO SCH (10:00)
== END 2016-12-18 20:30 ==
LOC: EMEROO 23:18 → 3BNU 23:18 → SUATTDRO 12-15 03:50 → 3BNU 12-15 04:18
PROVIDERS: ADMIT Family Medicine; ATTEND Nurse Practitioner Family

== ENCOUNTER 2018-07-22 05:51 | Inpatient (IN) ==
[2018-07-22] MEDS ORDERED: 0.9 % Sodium Chloride 1,000 ML IVC ONE ×2 (06:03→10:09)
[2018-07-22] MEDS ORDERED: Ipratropium/Albuterol Neb 3 ML IH ONE (06:04)
--- NOTE | 2018-07-22 06:14 | Emergency Department Note ---
Disposition Clinical Impression: Altered mental status Disposition: Still a Patient Condition: Fair Time of Disposition: 06:43 Altered Mental Status HPI - General Stated Complaint: ams/elevated temp Time Seen by Provider: 07/22/18 06:03 Source: patient, EMS Mode of arrival: EMS Limitations: altered mental status, age Nursing Notes Reviewed: Yes Vital Signs Reviewed: Yes - History of Present Illness HPI Narrative: Patient presents to the ED via EMS and was seen and evaluated upon arrival with the chief complaint of altered mental status. Patient is from the halfway and was found sitting on her toilet this morning and she did not know where she was which is apparently different than baseline. She does have a history of dementia, but halfway staff reported. She is normally more with it. She had a fever there of 103. She was also initially hypoxic and was not on her oxygen when she was supposed to be. Patient's denying any pain, but review of systems is limited due to dementia. - Related Data Home Medications Medication Instructions Recorded Confirmed Calcium Carbonate [Calcium] 1,000 mg PO DAILY 11/08/16 12/15/16 Lisinopril [Zestril] 10 mg PO DAILY 11/08/16 12/15/16 Multivitamin [Multi-Day Vitamins] 1 tab PO DAILY 11/08/16 12/15/16 [place]-3/Dha/Epa/Fish Oil [Fish Oil 1,000 mg PO DAILY 11/08/16 12/15/16 1,000 mg Softgel] raNITIdine HCl [Zantac] 150 mg PO BID 11/08/16 12/15/16 Ascorbate Calcium [Vitamin C] 500 mg PO DAILY 12/15/16 12/15/16 Aspirin [Ecotrin] 325 mg PO DAILY 12/15/16 12/15/16 Previous Rx's Medication Instructions Recorded Oxycodone HCl/Acetaminophen 1 tab PO Q6H PRN #7 tablet 12/18/16 [Percocet 5-325 mg Tablet] levoFLOXacin [Levaquin] 500 mg PO DAILY #7 tablet 12/18/16 Albuterol Neb [Proventil Neb] 2.5 mg IH Q6HR #30 vial.neb 01/23/17 Amoxicillin/Clavulanate [Augmentin] 875 mg PO DAILY #7 tablet 05/26/18 Allergies Allergy/AdvReac Type Severity Reaction Status Date / Time Penicillins Allergy Hives Verified 12/14/16 23:27 sertraline [From Zoloft] Allergy See Verified 06/23/18 10:03 Comments alprazolam [From Xanax] AdvReac See Verified 06/23/18 10:03 Comments dicyclomine [From Bentyl] AdvReac See Verified 06/23/18 10:03 Comments etodolac AdvReac See Verified 06/23/18 10:03 Comments iodine AdvReac Gastrointestinal Verified 12/14/16 23:27 Upset Limitations: ROS unobtainable due to patients medical condition Past Medical History - Past Medical History Source: old records reviewed Medical history: Reports: CHF, COPD, dementia, diabetes, GERD, glaucoma, hypertension, myocardial infarction, renal disease, other Surgical history: Reports: appendectomy, breast surgery, cholecystectomy, hysterectomy Psychiatric history: Reports: anxiety, depression WRAPPER HAND history: Reports: no WRAPPER HAND history - Social History Smoking Status: Never smoker Smokeless Tobacco Status: No Alcohol use: Reports: none Drug use: Reports: none Physical Exam CONSTITUTIONAL: [well appearing, alert and in no acute distress] EYES: [EOMI, clear conjunctiva, PERRLA] HENT: [Normocephalic, atraumatic, moist mucus membranes, normal oropharynx] NECK: [normal inspection, full ROM, trachea midline, no obvious swelling] PULMONARY: [wheezing throughout, decreased breath sounds b/l, very mild resp distress, no stridor, rales, or rhonchi CARDIOVASCULAR: [tachycardia, irregular rhythm, + systolic murmur, distal extremities are warm and well perfused] GASTROINSTESTINAL: [soft, non-tender, non-rigid, non-distended, no guarding, no rebound, normal bowel sounds] GENITOURINARY/RECTAL: [deferred] NEUROLOGIC: [Alert, oriented x2, normal speech, moves all extremities] EXTREMITIES: [Normal inspection, full ROM, no tenderness, 3+ pedal edema, normal capillary refill] MUSCULOSKELETAL: [no gross deformities, atraumatic] SKIN: [No cyanosis, no diaphoresis, normal color, warm] PSYCHIATRIC: [normal mood and affect] - General Limitations: altered mental status, age General appearance: alert, in no apparent distress Course Course Narrative: patient will be signed out to the on-coming daytime physician, Dr. Vinton. Vital Signs Temperature 102.7 F H 07/22/18 05:57 Pulse Rate 134 07/22/18 05:57 Respiratory Rate 22 07/22/18 05:57 Blood Pressure 155/109 07/22/18 05:57 O2 Sat by Pulse Oximetry 94 07/22/18 05:57 Temperature 102.7 F H 07/22/18 05:57 Pulse Rate 134 07/22/18 05:57 Respiratory Rate 22 07/22/18 05:57 Blood Pressure 155/109 07/22/18 05:57 O2 Sat by Pulse Oximetry 95 07/22/18 06:03 Oxygen Delivery Oxygen Delivery Nasal Cannula Altered Mental Status - Lab Data Result diagrams: 07/22/18 06:05 Lab Results 07/22/18 07/22/18 Range/Units 06:05 06:05 WBC 24.5 H (4.3-11.1) K/mcL RBC 4.33 (3.82-4.97) M/mcL Hgb 12.5 (11.5-15.4) g/dL Hct 38.9 (35.3-44.9) % MCV 89.8 (83.0-100.0) fL MCH 28.9 (28.0-33.3) pg MCHC 32.1 (31.6-35.5) g/dL RDW 14.4 (11.5-14.5) % Plt Count 121 L (140-400) K/mcL MPV 10.2 (9.4-12.4) fL PT 13.3 H (9.4-12.1) Seconds INR 1.2 APTT 28.0 (26.0-36.0) Seconds TPA Checklist - LKW: 3-4.5 hrs Add. Warnings/Precautions Patient/family understanding: The patient/family members have been counseled and understood the risk, benefit , and alternatives of treatment.
[2018-07-22 06:28] LABS: Hematocrit 38.9 % (35.3-44.9); Hemoglobin 12.5 g/dL (11.5-15.4); Mean Corpuscular HGB Conc 32.1 g/dL (31.6-35.5); Mean Corpuscular Hemoglobin 28.9 pg (28.0-33.3); Mean Corpuscular Volume 89.8 fL (83.0-100.0); Mean Platelet Volume 10.2 fL (9.4-12.4); Platelet Count 121 K/mcL (140-400); Red Blood Count 4.33 M/mcL (3.82-4.97); Red Cell Distribution Width 14.4 % (11.5-14.5)
[2018-07-22 06:35] LABS: INR 1.2; Prothrombin Time 13.3 Seconds (9.4-12.1)
[2018-07-22 06:42] LABS: Lymphocytes # 0.5 K/mcL (0.6-4.6); Monocytes # 1.5 K/mcL (0.0-1.3); Neutrophils # 22.5 K/mcL (1.6-8.9); Platelet Estimate Slight Decrease (Normal)
[2018-07-22 06:44] LABS: Albumin 3.4 g/dL (3.5-5.7); Albumin/Globulin Ratio 0.9 (1.1-2.2); Bilirubin,Direct 0.3 mg/dL (0.0-0.2); Bilirubin,Indirect 0.7 mg/dL (0.0-1.2); Globulin 3.7 g/dL (2.4-3.5); Potassium 4.5 mEq/L (3.5-5.1); Total Protein 7.1 g/dL (6.4-8.9)
[2018-07-22 06:47] LABS: Troponin I 0.05 ng/mL (< 0.04)
--- NOTE | 2018-07-22 06:51 | Emergency Department Note ---
Disposition Clinical Impression: Altered mental status Qualifiers: Altered mental status type: disorientation Qualified Code(s): R41.0 - Disorientation, unspecified Sepsis Qualifiers: Sepsis type: sepsis due to unspecified organism Qualified Code(s): A41.9 - Sepsis, unspecified organism Fever Qualifiers: Fever type: unspecified Qualified Code(s): R50.9 - Fever, unspecified Disposition: Still a Patient Condition: Fair Referrals: Santana Novoa MD [Primary Care Provider] - General Adult HPI - General Chief complaint: ED Altered Mental Status Stated complaint: ams/elevated temp Time Seen by Provider: 07/22/18 06:03 Source: patient, EMS Mode of arrival: EMS Limitations: altered mental status, age Nursing Notes Reviewed: Yes Vital Signs Reviewed: Yes - History of Present Illness Pain Scale: 0 - Related Data Home Medications Medication Instructions Recorded Confirmed Calcium Carbonate [Calcium] 1,000 mg PO DAILY 11/08/16 12/15/16 Lisinopril [Zestril] 10 mg PO DAILY 11/08/16 12/15/16 Multivitamin [Multi-Day Vitamins] 1 tab PO DAILY 11/08/16 12/15/16 [place]-3/Dha/Epa/Fish Oil [Fish Oil 1,000 mg PO DAILY 11/08/16 12/15/16 1,000 mg Softgel] raNITIdine HCl [Zantac] 150 mg PO BID 11/08/16 12/15/16 Ascorbate Calcium [Vitamin C] 500 mg PO DAILY 12/15/16 12/15/16 Aspirin [Ecotrin] 325 mg PO DAILY 12/15/16 12/15/16 Previous Rx's Medication Instructions Recorded Oxycodone HCl/Acetaminophen 1 tab PO Q6H PRN #7 tablet 12/18/16 [Percocet 5-325 mg Tablet] levoFLOXacin [Levaquin] 500 mg PO DAILY #7 tablet 12/18/16 Albuterol Neb [Proventil Neb] 2.5 mg IH Q6HR #30 vial.neb 01/23/17 Amoxicillin/Clavulanate [Augmentin] 875 mg PO DAILY #7 tablet 05/26/18 Allergies Allergy/AdvReac Type Severity Reaction Status Date / Time Penicillins Allergy Hives Verified 12/14/16 23:27 sertraline [From Zoloft] Allergy See Verified 06/23/18 10:03 Comments alprazolam [From Xanax] AdvReac See Verified 06/23/18 10:03 Comments dicyclomine [From Bentyl] AdvReac See Verified 06/23/18 10:03 Comments etodolac AdvReac See Verified 06/23/18 10:03 Comments iodine AdvReac Gastrointestinal Verified 12/14/16 23:27 Upset Past Medical History - Past Medical History Medical history: Reports: CHF, COPD, dementia, diabetes, GERD, glaucoma, hypertension, myocardial infarction, renal disease, other Surgical history: Reports: appendectomy, breast surgery, cholecystectomy, hysterectomy Psychiatric history: Reports: anxiety, depression 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 - Social History Smoking Status: Never smoker Smokeless Tobacco Status: No Alcohol use: Reports: none Drug use: Reports: none Physical Exam - General Limitations: altered mental status, age General appearance: alert, in no apparent distress Course Vital Signs Temperature 102.7 F H 07/22/18 05:57 Pulse Rate 134 07/22/18 05:57 Respiratory Rate 22 07/22/18 05:57 Blood Pressure 155/109 07/22/18 05:57 O2 Sat by Pulse Oximetry 94 07/22/18 05:57 Temperature 102.7 F H 07/22/18 05:57 Pulse Rate 134 07/22/18 05:57 Respiratory Rate 22 07/22/18 05:57 Blood Pressure 155/109 07/22/18 05:57 O2 Sat by Pulse Oximetry 95 07/22/18 06:03 Oxygen Delivery Oxygen Delivery Nasal Cannula Medical Decision Making - Lab Data Lab results reviewed: Yes I reviewed the patient's lab results. Result diagrams: 07/22/18 06:05 07/22/18 06:05 Lab Results 07/22/18 07/22/18 07/22/18 Range/Units 06:05 06:05 06:05 WBC 24.5 H (4.3-11.1) K/mcL RBC 4.33 (3.82-4.97) M/mcL Hgb 12.5 (11.5-15.4) g/dL Hct 38.9 (35.3-44.9) % MCV 89.8 (83.0-100.0) fL MCH 28.9 (28.0-33.3) pg MCHC 32.1 (31.6-35.5) g/dL RDW 14.4 (11.5-14.5) % Plt Count 121 L (140-400) K/mcL MPV 10.2 (9.4-12.4) fL Seg Neutrophils % 82.0 % Band Neutrophils % 10.0 H (0-4) % Lymphocytes % 2.0 % Monocytes % 6.0 % Neutrophils # 22.5 H (1.6-8.9) K/mcL Lymphocytes # 0.5 L (0.6-4.6) K/mcL Monocytes # 1.5 H (0.0-1.3) K/mcL Platelet Estimate Slight Decrease L (Normal) PT 13.3 H (9.4-12.1) Seconds INR 1.2 APTT 28.0 (26.0-36.0) Seconds Sodium 136 (136-145) mEq/L Potassium 4.5 (3.5-5.1) mEq/L Chloride 97 L (98-107) mEq/L Carbon Dioxide 30 H (23-29) mEq/L BUN 26 H (8-23) mg/dL Creatinine 1.25 H (0.60-1.20) mg/dL Est GFR ( Amer) 49 L (> 60) Est GFR (Non-Af Amer) 40 L (> 60) BUN/Creatinine Ratio 21 (6-26) Glucose 323 H (70-105) mg/dL Calculated Osmolality 299 (280-300) Lactic Acid (0.5-2.2) mmol/L Calcium 9.0 (8.6-10.3) mg/dL Total Bilirubin 1.0 (0.3-1.0) mg/dL Direct Bilirubin 0.3 H (0.0-0.2) mg/dL Indirect Bilirubin 0.7 (0.0-1.2) mg/dL AST 33 (13-39) Units/L ALT 16 (7-52) Units/L Alkaline Phosphatase 80 (34-104) Units/L Creatine Kinase 577 H (30-223) Units/L Troponin I 0.05 H* (< 0.04) ng/mL Serum Total Protein 7.1 (6.4-8.9) g/dL Albumin 3.4 L (3.5-5.7) g/dL Globulin 3.7 H (2.4-3.5) g/dL Albumin/Globulin Ratio 0.9 L (1.1-2.2) 07/22/18 Range/Units 06:05 WBC (4.3-11.1) K/mcL RBC (3.82-4.97) M/mcL Hgb (11.5-15.4) g/dL Hct (35.3-44.9) % MCV (83.0-100.0) fL MCH (28.0-33.3) pg MCHC (31.6-35.5) g/dL RDW (11.5-14.5) % Plt Count (140-400) K/mcL MPV (9.4-12.4) fL Seg Neutrophils % % Band Neutrophils % (0-4) % Lymphocytes % % Monocytes % % Neutrophils # (1.6-8.9) K/mcL Lymphocytes # (0.6-4.6) K/mcL Monocytes # (0.0-1.3) K/mcL Platelet Estimate (Normal) PT (9.4-12.1) Seconds INR APTT (26.0-36.0) Seconds Sodium (136-145) mEq/L Potassium (3.5-5.1) mEq/L Chloride (98-107) mEq/L Carbon Dioxide (23-29) mEq/L BUN (8-23) mg/dL Creatinine (0.60-1.20) mg/dL Est GFR ( Amer) (> 60) Est GFR (Non-Af Amer) (> 60) BUN/Creatinine Ratio (6-26) Glucose (70-105) mg/dL Calculated Osmolality (280-300) Lactic Acid 2.3 H (0.5-2.2) mmol/L Calcium (8.6-10.3) mg/dL Total Bilirubin (0.3-1.0) mg/dL Direct Bilirubin (0.0-0.2) mg/dL Indirect Bilirubin (0.0-1.2) mg/dL AST (13-39) Units/L ALT (7-52) Units/L Alkaline Phosphatase (34-104) Units/L Creatine Kinase (30-223) Units/L Troponin I (< 0.04) ng/mL Serum Total Protein (6.4-8.9) g/dL Albumin (3.5-5.7) g/dL Globulin (2.4-3.5) g/dL Albumin/Globulin Ratio (1.1-2.2) - EKG Data EKG #1 EKG attestation: Yes I reviewed and interpreted this EKG. EKG results narrative: EKG shows a sinus tachycardia with ventricular rate of 129. Occasional PVC. Difficult to interpret due to poor technical quality. No definite ST segment elevation or depression noted. Critical Care Time Critical Care Time: Yes Total Critical Care Time: 35 Attestation: Critical care performed: Time is exclusive of separately billable procedures. Time includes: direct patient care, patient reassessment, coordination of patient care, interpretation of data (laboratory data, radiology data, and respiratory data), review of patient's medical records, medical consultation and documentation of patient care. Procedures included in critical care time: Procedures excluded from critical care time: Attestation Statement - Attestation Attestation: I, Carlos Brown MD, personally evaluated this patient and discussed their management with the resident physician. I reviewed the resident's note and agree with the documented findings, medical decision making, and plan of care. 87-year-old female presents to the emergency department from a local [facility] for fever and altered mental status with low oxygen saturations. On arrival here the patient is alert. She seems confused and hard of hearing but answers most questions appropriately. She denies any pain. She denies shortness of breath however she is obviously tachypneic with a respiratory rate around 30 and diffuse bilateral wheezes. Temp on arrival here was 102.7 orally. On examination patient is a well-developed obese elderly female in mild distress. She is alert. No cyanosis or diaphoresis. Breath sounds are decreased bilaterally with diffuse bilateral tight expiratory wheezes. Heart tachycardic and regular. Abdomen is soft bowel sounds. No obvious tenderness on palpation. Blood cultures obtained. At shift change patient is signed out to the [facility] physician, Dr. Pinzon.
[2018-07-22 06:57] LABS: Thyroid Stimulating Hormone 0.394 mcIU/mL (0.340-5.600)
[2018-07-22] MEDS ORDERED: Cefepime HCl 2,000 MG in Water for inj. (sterile) 20 ML 20 ML IVP ONE (07:34)
[2018-07-22] MEDS ORDERED: Gadolinium Contrast Agent (WT Based) IV PRN (08:12)
[2018-07-22 08:23] LABS: Bilirubin,Urine Negative (Negative); Blood,Urine Moderate (Negative); Clarity,Urine Turbid (Clear); Color,Urine Yellow (Yellow); Glucose,Urine (UA) 250 mg/dL (Normal); Ketones,Urine Trace mg/dL (Negative); Leukocyte Esterase,Urine Large (Negative); Nitrite,Urine Negative (Negative); Protein,Urine 100 mg/dL (Neg-Trace); Specific Gravity,Urine 1.018 (1.010-1.025); Urobilinogen,Urine Normal (Normal)
[2018-07-22 08:32] LABS: Bacteria,Urine Present per hpf (None-Few); RBC,Urine Present per hpf (0-3); Squamous Epithelial Cell,Urine Present per lpf (None-Few); WBC,Urine TNTC per hpf (0-3)
[2018-07-22 08:33] LABS: Mucus,Urine Present (Few)
[2018-07-22] MEDS ORDERED: Naloxone 0.4 MG/ML INJ IVP PRN (08:46)
--- NOTE | 2018-07-22 08:54 | Emergency Department Note ---
Disposition Clinical Impression: Altered mental status Qualifiers: Altered mental status type: disorientation Qualified Code(s): R41.0 - Disorientation, unspecified Sepsis Qualifiers: Sepsis type: sepsis due to unspecified organism Qualified Code(s): A41.9 - Sepsis, unspecified organism Fever Qualifiers: Fever type: unspecified Qualified Code(s): R50.9 - Fever, unspecified Disposition: Still a Patient Condition: Fair General Adult HPI - General Chief complaint: ED Altered Mental Status Stated complaint: ams/elevated temp Time Seen by Provider: 07/22/18 06:03 Source: patient, EMS Mode of arrival: EMS Limitations: altered mental status, age - History of Present Illness Pain Scale: 10 - Related Data Home Medications Medication Instructions Recorded Confirmed Calcium Carbonate [Calcium] 1,000 mg PO DAILY 11/08/16 12/15/16 [place]-3/Dha/Epa/Fish Oil [Fish Oil 1,000 mg PO DAILY 11/08/16 12/15/16 1,000 mg Softgel] Ascorbate Calcium [Vitamin C] 500 mg PO DAILY 12/15/16 12/15/16 Aspirin [Ecotrin] 325 mg PO DAILY 12/15/16 12/15/16 Furosemide [Lasix] 40 mg PO DAILY 07/22/18 07/22/18 Lisinopril [Zestril] 10 mg PO DAILY 07/22/18 07/22/18 Multivitamin [One Daily Essential] 1 tab PO DAILY 07/22/18 07/22/18 Olopatadine HCl [Olopatadine HCl] 1 drop BOTH EYES DAILY 07/22/18 07/22/18 Potassium Chloride 20 meq PO DAILY 07/22/18 07/22/18 Ranitidine HCl [Acid Professor Of Physics] 150 mg PO BID 07/22/18 07/22/18 Allergies Allergy/AdvReac Type Severity Reaction Status Date / Time Penicillins Allergy Hives Verified 07/22/18 08:05 sertraline [From Zoloft] Allergy See Verified 07/22/18 08:05 Comments alprazolam [From Xanax] AdvReac See Verified 07/22/18 08:05 Comments dicyclomine [From Bentyl] AdvReac See Verified 07/22/18 08:05 Comments etodolac AdvReac See Verified 07/22/18 08:05 Comments iodine AdvReac Gastrointestinal Verified 07/22/18 08:05 Upset Past Medical History - Past Medical History Medical history: Reports: CHF, COPD, dementia, diabetes, GERD, glaucoma, hypertension, myocardial infarction, renal disease, other Surgical history: Reports: appendectomy, breast surgery, cholecystectomy, hysterectomy Psychiatric history: Reports: anxiety, depression 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 [employer] history - Social History Smoking Status: Never smoker Smokeless Tobacco Status: No Alcohol use: Reports: none Drug use: Reports: none Physical Exam - General Limitations: altered mental status, age General appearance: alert, in no apparent distress Course Vital Signs Temperature 102.7 F H 07/22/18 05:57 Pulse Rate 134 07/22/18 05:57 Respiratory Rate 22 07/22/18 05:57 Blood Pressure 155/109 07/22/18 05:57 O2 Sat by Pulse Oximetry 94 07/22/18 05:57 Temperature 102.7 F H 07/22/18 05:57 Pulse Rate 72 07/22/18 08:11 Respiratory Rate 20 07/22/18 08:11 Blood Pressure 132/47 07/22/18 08:11 O2 Sat by Pulse Oximetry 96 07/22/18 08:11 Oxygen Delivery Oxygen Delivery Nasal Cannula Medical Decision Making - [facility] Narrative Medical decision making narrative: I received this patient in signout. Findings consistent with pneumonia, altered mental status. Patient does have persistent febrile illness likely related to underlying sepsis. Plan a significant leukocytosis, lactic acidosis , elevated creatinine kinase. IV fluids, broad-spectrum antibiotics including vancomycin and cefepime were initiated, pancultures were sent. There was finding of low attenuation on head CT and subsequent MRI of the brain as well as MRA of the neck were ordered. These will be completed as an inpatient. The patient's heart rate is improved at time of admission. She did have fever despite treatment with Tylenol and ultimately was placed on a cooling blanket. I spent greater than 35 minutes of critical care time resuscitating this critically ill patient suffering from sepsis. This was excluding billable procedures. - Lab Data Result diagrams: 07/22/18 06:05 07/22/18 06:05 Lab Results 07/22/18 07/22/18 07/22/18 Range/Units 06:05 06:05 06:05 WBC 24.5 H (4.3-11.1) K/mcL RBC 4.33 (3.82-4.97) M/mcL Hgb 12.5 (11.5-15.4) g/dL Hct 38.9 (35.3-44.9) % MCV 89.8 (83.0-100.0) fL MCH 28.9 (28.0-33.3) pg MCHC 32.1 (31.6-35.5) g/dL RDW 14.4 (11.5-14.5) % Plt Count 121 L (140-400) K/mcL MPV 10.2 (9.4-12.4) fL Seg Neutrophils % 82.0 % Band Neutrophils % 10.0 H (0-4) % Lymphocytes % 2.0 % Monocytes % 6.0 % Neutrophils # 22.5 H (1.6-8.9) K/mcL Lymphocytes # 0.5 L (0.6-4.6) K/mcL Monocytes # 1.5 H (0.0-1.3) K/mcL Platelet Estimate Slight Decrease L (Normal) PT 13.3 H (9.4-12.1) Seconds INR 1.2 APTT 28.0 (26.0-36.0) Seconds Sodium 136 (136-145) mEq/L Potassium 4.5 (3.5-5.1) mEq/L Chloride 97 L (98-107) mEq/L Carbon Dioxide 30 H (23-29) mEq/L BUN 26 H (8-23) mg/dL Creatinine 1.25 H (0.60-1.20) mg/dL Est GFR ( Amer) 49 L (> 60) Est GFR (Non-Af Amer) 40 L (> 60) BUN/Creatinine Ratio 21 (6-26) Glucose 323 H (70-105) mg/dL Calculated Osmolality 299 (280-300) Lactic Acid (0.5-2.2) mmol/L Calcium 9.0 (8.6-10.3) mg/dL Total Bilirubin 1.0 (0.3-1.0) mg/dL Direct Bilirubin 0.3 H (0.0-0.2) mg/dL Indirect Bilirubin 0.7 (0.0-1.2) mg/dL AST 33 (13-39) Units/L ALT 16 (7-52) Units/L Alkaline Phosphatase 80 (34-104) Units/L Creatine Kinase 577 H (30-223) Units/L Troponin I 0.05 H* (< 0.04) ng/mL Serum Total Protein 7.1 (6.4-8.9) g/dL Albumin 3.4 L (3.5-5.7) g/dL Globulin 3.7 H (2.4-3.5) g/dL Albumin/Globulin Ratio 0.9 L (1.1-2.2) TSH 0.394 (0.340-5.600) mcIU/mL Urine Color (Yellow) Urine Clarity (Clear) Urine pH (5.0-8.0) pH Units Ur Specific [place] (1.010-1.025) Urine Protein (Neg-Trace) mg/dL Urine Glucose (UA) (Normal) mg/dL Urine Ketones (Negative) mg/dL Urine Blood (Negative) Urine Nitrite (Negative) Urine Bilirubin (Negative) Urine Urobilinogen (Normal) mg/dL Ur Leukocyte Esterase (Negative) Urine Microscopic RBC (0-3) per hpf Urine Microscopic WBC (0-3) per hpf Ur Squamous Epith Cells (None-Few) per lpf Urine Bacteria (None-Few) per hpf Urine Mucus (Few) Ur Culture Indicated? (NO) 07/22/18 07/22/18 Range/Units 06:05 08:03 WBC (4.3-11.1) K/mcL RBC (3.82-4.97) M/mcL Hgb (11.5-15.4) g/dL Hct (35.3-44.9) % MCV (83.0-100.0) fL MCH (28.0-33.3) pg MCHC (31.6-35.5) g/dL RDW (11.5-14.5) % Plt Count (140-400) K/mcL MPV (9.4-12.4) fL Seg Neutrophils % % Band Neutrophils % (0-4) % Lymphocytes % % Monocytes % % Neutrophils # (1.6-8.9) K/mcL Lymphocytes # (0.6-4.6) K/mcL Monocytes # (0.0-1.3) K/mcL Platelet Estimate (Normal) PT (9.4-12.1) Seconds INR APTT (26.0-36.0) Seconds Sodium (136-145) mEq/L Potassium (3.5-5.1) mEq/L Chloride (98-107) mEq/L Carbon Dioxide (23-29) mEq/L BUN (8-23) mg/dL Creatinine (0.60-1.20) mg/dL Est GFR ( Amer) (> 60) Est GFR (Non-Af Amer) (> 60) BUN/Creatinine Ratio (6-26) Glucose (70-105) mg/dL Calculated Osmolality (280-300) Lactic Acid 2.3 H (0.5-2.2) mmol/L Calcium (8.6-10.3) mg/dL Total Bilirubin (0.3-1.0) mg/dL Direct Bilirubin (0.0-0.2) mg/dL Indirect Bilirubin (0.0-1.2) mg/dL AST (13-39) Units/L ALT (7-52) Units/L Alkaline Phosphatase (34-104) Units/L Creatine Kinase (30-223) Units/L Troponin I (< 0.04) ng/mL Serum Total Protein (6.4-8.9) g/dL Albumin (3.5-5.7) g/dL Globulin (2.4-3.5) g/dL Albumin/Globulin Ratio (1.1-2.2) TSH (0.340-5.600) mcIU/mL Urine Color Yellow (Yellow) Urine Clarity Turbid A (Clear) Urine pH 6.0 (5.0-8.0) pH Units Ur Specific [place] 1.018 (1.010-1.025) Urine Protein 100 H (Neg-Trace) mg/dL Urine Glucose (UA) 250 H (Normal) mg/dL Urine Ketones Trace H (Negative) mg/dL Urine Blood Moderate H (Negative) Urine Nitrite Negative (Negative) Urine Bilirubin Negative (Negative) Urine Urobilinogen Normal (Normal) mg/dL Ur Leukocyte Esterase Large H (Negative) Urine Microscopic RBC Present (0-3) per hpf Urine Microscopic WBC TNTC H (0-3) per hpf Ur Squamous Epith Cells Present (None-Few) per lpf Urine Bacteria Present (None-Few) per hpf Urine Mucus Present (Few) Ur Culture Indicated? YES A (NO)
--- NOTE | 2018-07-22 08:54 | Internal Med History&Physical ---
Date of Encounter: 07/22/18 Time of Encounter: 08:45 Internal Medicine - H&P: HPI Chief complaint: Fever, shortness of breath Admitted From: Emergency Dept Plans for Post Hospital Care: Transfer Detention Facility History of present illness: Ms. Gibbs is a 87 year old female patient with history of diabetes, hypertension who was brought to the ER from her custodial facility with complaints of altered mental status, fever and shortness of breath. She does have a history of underlying dementia. She is unable to provide much history and so history was obtained through review of ED records and from her son who is present at bedside. Her son reports that he had last seen her on and at that time he was told that she was being treated for pneumonia. This morning she was apparently on the toilet seat and could not remember where she was. Currently she reports nausea. She is not sure if she had cough. She is also been febrile with a temperature of 103 at the nursing facility. In the ER initially, she was tachypneic and breathing at a rate of 30/m and had bilateral wheezing. She was also tachycardic. She received 1 g of Tylenol in the ER but her temperature remained elevated. Cooling blankets are now being placed. Past Med Surg Social Fam HX - Past Medical History Source: old records reviewed Medical history: CHF, COPD, dementia, diabetes, GERD, glaucoma, hypertension, myocardial infarction, renal disease, other Additional medical history: Falls Psychiatric history: anxiety, depression - Past Surgical History Surgical History: appendectomy, breast surgery, cholecystectomy, hysterectomy Additional surgical history: back surgery - Social History Smoking Status: Never smoker Smokeless Tobacco Status: No Alcohol use: none Drug use: none - Family History Father Living Status: Hx Family Cancer: Yes (LIVER CANCER) Son Adopted: No Family Member Ethnicity: Non- Living Status: Still Living Hx Family Cardiac Disorders: No Hx Family Respiratory Disorders: No Hx Family Cancer: No Hx Family GI Disorders: Yes (Acid Reflux) Hx Family Endocrine Disorder: Yes (partial tyroidectomy) Hx Family Neuromuscular Disorders: No Hx Family Neurologic Disorders: No Hx Family HEENT Disorders: No Hx Family Autoimmune Disorders: No Internal Medicine - H&P: Meds Calcium Carbonate [Calcium] 1,000 mg PO DAILY 11/08/16 [History] [place]-3/Dha/Epa/Fish Oil [Fish Oil 1,000 mg Softgel] 1,000 mg PO DAILY 11/08/16 [History] Ascorbate Calcium [Vitamin C] 500 mg PO DAILY 12/15/16 [History] Aspirin [Ecotrin] 325 mg PO DAILY 12/15/16 [History] Furosemide [Lasix] 40 mg PO DAILY 07/22/18 [History] Lisinopril [Zestril] 10 mg PO DAILY 07/22/18 [History] Multivitamin [One Daily Essential] 1 tab PO DAILY 07/22/18 [History] Olopatadine HCl [Olopatadine HCl] 1 drop BOTH EYES DAILY 07/22/18 [History] Potassium Chloride 20 meq PO DAILY 07/22/18 [History] Ranitidine HCl [Acid Bark Peeler] 150 mg PO BID 07/22/18 [History] 3 Allergy/AdvReac Type Severity Reaction Status Date / Time Penicillins Allergy Hives Verified 07/22/18 08:05 sertraline [From Zoloft] Allergy See Verified 07/22/18 08:05 Comments alprazolam [From Xanax] AdvReac See Verified 07/22/18 08:05 Comments dicyclomine [From Bentyl] AdvReac See Verified 07/22/18 08:05 Comments etodolac AdvReac See Verified 07/22/18 08:05 Comments iodine AdvReac Gastrointestinal Verified 07/22/18 08:05 Upset All Systems PM: A 10-system review of systems was performed and is negative for pertinent findings except as documented above in the HPI. - Constitutional Constitutional: fever(s), lethargy, malaise - EENT Eyes: no change in vision, no discharge, no pain, no photophobia Ears: no ear discharge, no ear pain, no tinnitus Nose, mouth and throat: no dysphagia, no nasal discharge, no neck pain, no sore throat - Cardiovascular Cardiovascular ROS IM: no chest pain, no diaphoresis, no dyspnea, no lightheadedness, no palpitations, no syncope - Respiratory Respiratory: dyspnea, no cough, no wheezing, no excessive phlegm production - Gastrointestinal Gastrointestinal: nausea, no abdominal pain, no diarrhea, no hematemesis, no hematochezia, no melena, no vomiting - Genitourinary Genitourinary: no change in urinary stream, no dysuria, no flank pain, no hematuria - Musculoskeletal Musculoskeletal ROS IM: no numbness, no tingling - Integumentary Integumentary IM: no rash, no unusual bruising Additional comments: Decubitus ulcers in the sacral region - Psychiatric Psychiatric: confusion - Hematologic/Lymphatic Hematologic/Lymphatic: no easy bruising - Constitutional Vitals: Temp Pulse Resp BP Pulse Ox 102.7 F H 72 20 132/47 96 07/22/18 05:57 07/22/18 08:11 07/22/18 08:11 07/22/18 08:11 07/22/18 08:11 General appearance: Present: cooperative, A&O X 1, pleasant Exam: Moderate distress - Neck Neck exam general surgery: Present: supple, trachea midline. Absent: lymphadenopathy - Respiratory Respiratory exam: Present: prolonged expiratory phase, wheezes. Absent: accessory muscle use, rales, rhonchi - Cardiovascular Cardiovascular exam: Present: RRR, +S1, +S2. Absent: diastolic murmur, gallop, rubs, systolic murmur - GI/Abdominal GI/Abdominal exam: Present: normal bowel sounds, soft, no peritoneal signs. Absent: distended, tenderness - Extremities Exam Extremities exam: Present: pedal edema, warm, radial pulses palpable and symmetrical. Absent: calf tenderness, cyanotic - Neurological Exam Neurological exam: Present: alert, no focal deficits. Absent: facial droop, speech deficit - Skin Additional comments: Unable to examine patient's sacral region at this time. We will reexamine later. Internal Med - H&P Results - Labs CBC & Chem 7: 07/22/18 06:05 07/22/18 06:05 - Impressions Impressions Chest X-Ray 07/22/18 06:03 IMPRESSION: 1. Left upper lobe airspace disease suggests pneumonia. 2. Left basilar atelectasis or pneumonia versus artifact. PA and lateral radiographs may provide additional diagnostic information. D/ / Junior Lala MD / Junior Lala MD Interpreting Provider: Junior Lala MD Head CT 07/22/18 06:03 IMPRESSION: 1. Subtle low-attenuation involving the right cerebellar hemisphere. I am uncertain if this is due to motion or beam hardening artifact versus a true finding. Depending on her symptoms further evaluation with MRI is suggested. 2. Diffuse cerebral atrophy with chronic small vessel ischemic disease. D/ / Adan Coronado MD / Adan Coronado MD Interpreting Provider: Adan Coronado MD - Assessment and plan (1) Sepsis Current Visit: Yes Status: Suspected Assessment and plan: Due to pneumonia. Healthcare associated test [facility]. Involving the left upper lobe. We will treat her with broad-spectrum antibiotics to cover for MRSA and gram-negative bacteria. Check urine streptococcal and legionella antigens. Check pro calcitonin. Trend lactic acid. IV fluids. Monitor urine output. Qualifiers: Sepsis type: methicillin resistant Staphylococcus aureus Qualified Code(s) : A41.02 - Sepsis due to Methicillin resistant Staphylococcus aureus (2) Pneumonia Current Visit: Yes Status: Acute Assessment and plan: Pneumonia: Healthcare associated. Will treat with broad-spectrum antibiotics to cover MRSA and gram-negative bacteria. Follow culture results. O2 supplementation. Bronchodilators as needed. Qualifiers: Pneumonia type: due to methicillin-resistant Staphylococcus aureus (MRSA) Laterality: left Lung location: upper lobe of lung Qualified Code(s): J15.212 - Pneumonia due to Methicillin resistant Staphylococcus aureus (3) Diabetes mellitus Current Visit: Yes Status: Acute Assessment and plan: Platelet sugars are currently elevated. Will monitor blood sugars. Place patient on sliding scale insulin. Diabetic diet when tolerated. Qualifiers: Diabetes mellitus type: type 2 Diabetes mellitus alf insulin use: without technician terminal and repeater use Diabetes mellitus complication status: with hyperglycemia Qualified Code(s): E11.65 - Type 2 diabetes mellitus with hyperglycemia (4) Dementia Current Visit: Yes Status: Chronic Assessment and plan: Patient has a history of underlying dementia. She does have some confusion at this time. We will monitor for signs of delirium and treat accordingly. Qualifiers: Dementia type: unspecified type Dementia behavioral disturbance: without behavioral disturbance Qualified Code(s): F03.90 - Unspecified dementia without behavioral disturbance (5) DVT prophylaxis Current Visit: Yes Status: Acute Assessment and plan: With subcutaneous heparin. Monitor platelet counts. (6) HTN (hypertension) Current Visit: Yes Status: Chronic Assessment and plan: monitor blood pressure. Continue home medications. Qualifiers: Hypertension type: essential hypertension Qualified Code(s): I10 - Essential (primary) hypertension (7) Urinary tract infection Current Visit: Yes Status: Suspected Assessment and plan: Patient also appears to be having underlying urinary tract infection. She will be on antibiotics. Will follow culture results. Qualifiers: Urinary tract infection type: acute cystitis Hematuria presence: with hematuria Qualified Code(s): N30.01 - Acute cystitis with hematuria (8) Abnormal CT scan, head Current Visit: Yes Status: Acute Assessment and plan: CT of the head shows subtle low attenuation involving the right cerebellar hemisphere. MRI has been suggested. Will obtain MRI and follow the results. Currently patient does not have any focal extremity weakness. (9) Sacral decubitus ulcer Current Visit: Yes Status: Acute Assessment and plan: Patient's son reports that patient has sacral decubitus ulcer. Unable to examine at this time. We will reexamine later. Follow decubitus ulcer prophylactic measures with frequent turning. Local wound care. Wound care consult if needed. Qualifiers: Pressure injury stage: unspecified pressure injury stage Qualified Code(s) : L89.159 - Pressure ulcer of sacral region, unspecified stage - Time Spent With Patient Total time spent is greater than 50% in coordination of care (as documented) at patient's floor/unit and/or counseling patient:
[2018-07-22] MEDS ORDERED: 0.9 % Sodium Chloride 1,000 ML IVC SCH (09:00)
--- NOTE | 2018-07-22 09:05 | Electrocardiograph Report ---
[facility] Test Date: 2018-07-22 Pat Name: Angelita Gibbs Department: Room: 2NE19 Gender: F Director [employer]: : 1930 Requested By: [id number] Order Number: [id number] Reading MD: Donaldo Linares Measurements Intervals [place] Rate: 129 P: 0 OK: 93 QRS: 51 QRSD: 89 T: 88 QT: 291 QTc: 427 Interpretive Statements Sinus tachycardia Ventricular premature complex Low voltage, extremity leads Abnormal R-wave progression, late transition Nonspecific T abnormalities, lateral leads Artifact in lead(s) I II III aVR aVL aVF V1 Electronically Signed On 07-22-2018 9:03:35 EDT by Donaldo Linares
[2018-07-22] MEDS ORDERED: Levofloxacin 750 MG/150 ML 750 MG/150 ML BAG IVPB SCH (10:00)
[2018-07-22] MEDS: Ipratropium/Albuterol Neb 3 ML IH SCH ×4 (11:21→23:56)
[2018-07-22] MEDS ORDERED: *HR* Dextrose 50 % in Water (Syg) 50 ML SYRINGE IVP PRN (13:02)
[2018-07-22] MEDS ORDERED: D5% in Water 1,000 ML IVC PRN (13:02)
[2018-07-22] MEDS ORDERED: Dextrose Gel 15 GM/37.5 ML TUBE PO PRN ×2 (13:02)
[2018-07-22] MEDS: Ringers Solution, Lactated 1,000 ML IVC SCH (13:27)
[2018-07-22 14:19] LABS: Estimated Average Glucose 163 mg/dl; Hemoglobin A1C 7.3 %
[2018-07-22] MEDS: Cefepime HCl 2,000 MG in Water for inj. (sterile) 20 ML 20 ML IVP SCH (17:20)
[2018-07-22] MEDS: *HR* Heparin 5,000 UNIT/ML VIAL SQ SCH (17:21)
[2018-07-22] MEDS: Insulin LISPRO 300 UNITS/3 ML VIAL SQ SCH ×2 (17:22→21:39)
--- NOTE | 2018-07-22 18:47 | Event Note ---
Date of Encounter: 07/22/18 Time of Encounter: 18:47 Blood culture positive for gram-positive cocci: Possible streptococcal agalactiae. On cefepime. Allergic to penicillins.
[2018-07-22] MEDS ORDERED: Melatonin 3 MG TABLET PO PRN (21:38)
[2018-07-22] MEDS: Nystatin POWDER 30 GM BOTTLE TP SCH (21:39)
[2018-07-23] MEDS: Ringers Solution, Lactated 1,000 ML IVC SCH (02:50)
[2018-07-23] MEDS: Cefepime HCl 2,000 MG in Water for inj. (sterile) 20 ML 20 ML IVP SCH ×2 (03:50→17:24)
[2018-07-23] MEDS: Ipratropium/Albuterol Neb 3 ML IH SCH ×2 (04:18→07:34)
[2018-07-23 04:33] LABS: Basophils % 0.2 %; Eosinophils % 0.2 %; Hematocrit 29.9 % (35.3-44.9); Immature Granulocytes % 0.3 % (0-4); Lymphocytes # 1.1 K/mcL (0.6-4.6); Lymphocytes % 12.1 %; Mean Corpuscular HGB Conc 31.1 g/dL (31.6-35.5); Mean Corpuscular Hemoglobin 27.9 pg (28.0-33.3); Mean Corpuscular Volume 89.8 fL (83.0-100.0); Mean Platelet Volume 10.2 fL (9.4-12.4); Monocytes # 0.7 K/mcL (0.0-1.3); Monocytes % 6.9 %; Neutrophils # 7.6 K/mcL (1.6-8.9); Platelet Count 102 K/mcL (140-400); Red Blood Count 3.33 M/mcL (3.82-4.97); Red Cell Distribution Width 15.1 % (11.5-14.5); Segmented Neutrophils % 80.3 %
[2018-07-23 04:34] LABS: Hemoglobin 9.3 g/dL (11.5-15.4)
[2018-07-23 05:06] LABS: Calcium 8.2 mg/dL (8.6-10.3); Potassium 3.9 mEq/L (3.5-5.1)
[2018-07-23] MEDS: *HR* Heparin 5,000 UNIT/ML VIAL SQ SCH ×2 (05:56→17:24)
[2018-07-23] MEDS: Multivit/Ca/Min/Fe/FA 1 TAB TABLET PO SCH (08:38)
[2018-07-23] MEDS: Aspirin Enteric Coated 325 MG Tablet PO SCH (08:38)
[2018-07-23] MEDS: Nystatin POWDER 30 GM BOTTLE TP SCH ×2 (08:39→22:14)
[2018-07-23] MEDS: Insulin LISPRO 300 UNITS/3 ML VIAL SQ SCH ×4 (08:39→22:08)
[2018-07-23] MEDS: OLOPATADINE HCL OP SCH (08:40)
[2018-07-23] MEDS ORDERED: Furosemide 40 MG TABLET PO SCH (09:00)
[2018-07-23 09:36] LABS: Enterococcus by PCR Not Detected (Not Detect); Staphylococcus aureus by PCR Not Detected (Not Detect); Staphylococcus by PCR Not Detected (Not Detect); Streptococcus agalactiae(B)PCR DETECTED (Not Detect); Streptococcus by PCR DETECTED (Not Detect)
[2018-07-23 09:37] LABS: Acinetobacter baumannii by PCR Not Detected (Not Detect); Candida albicans by PCR Not Detected (Not Detect); Candida glabrata by PCR Not Detected (Not Detect); Candida krusei by PCR Not Detected (Not Detect); Candida parapsilosis by PCR Not Detected (Not Detect); Candida tropicalis by PCR Not Detected (Not Detect); Enterobacter cloacae Cmplx PCR Not Detected (Not Detect); Enterobacteriaceae by PCR Not Detected (Not Detect); Escherichia coli by PCR Not Detected (Not Detect); Klebsiella oxytoca by PCR Not Detected (Not Detect); Klebsiella pneumoniae by PCR Not Detected (Not Detect); Proteus by PCR Not Detected (Not Detect); Pseudomonas aeruginosa by PCR Not Detected (Not Detect); Serratia marcescens by PCR Not Detected (Not Detect); Streptococcus pneumoniae PCR Not Detected (Not Detect); Streptococcus pyogenes (A) PCR Not Detected (Not Detect)
[2018-07-23] MEDS ORDERED: Ipratropium/Albuterol Neb 3 ML IH PRN (10:38)
--- NOTE | 2018-07-23 12:59 | Internal Med Progress Note ---
<Shari Pagan - Last Filed: 07/23/18 18:04> Hospitalist Progress Note - Encounter Date of Encounter: 07/23/18 Time of Encounter: 12:55 ( ) - Subjective Interval History: Ms. Gibbs is an 87 yo F with history of Alzheimers, CAD, COPD, HTN, DM, CHF, and CA per medical records who was sent from [facility] to the ED on 07/22/18 due to fever and AMS. She was found to have a UTI, fever to 102.7, WBC count of 24.5 , CK of 577, and troponin of 0.06. Chest XR revealed left upper lobe consolidation and possible left lower consolidation. CT head revealed low attentuation signal of the right cerebellar hemisphere. She was started on vancomycin/levaquin/cefepime for HAP and UTI. Blood cultures grrew Strep agalactiae and urine cultures grew gram negative rods Today the patient is awake and alert. She is oriented x3 and feels good. She denies any areas of pain, fever, or nausea. She denied any dysuria. - Exam Vitals: Temp Pulse Resp BP Pulse Ox 98.2 F 58 16 118/41 94 07/23/18 11:45 07/23/18 11:45 07/23/18 11:45 07/23/18 11:45 07/23/18 11:45 Exam: Vitals reviewed. General: white female in no acute disress, sitting upright in bed, leaning forward. In mild respiratory distress. She is on 2L NC. Answers questions appropriately. Alert and oriented x3 today Neck: No JVD, trachea midline HEENT: PERRL, normocephalic, atraumatic Cardiac: Regular Rate and Rhythm, Normal S1 and S2, No murmurs appreciated Pulmonary: Decreased breath sounds on Left, No crackles or wheezing. Abdomen: soft, obese, no tenderness. no bruits, no guarding, Neuro: Alert and responsive, No focal deficits noted Vascular: Normal capillary refill Skin: Dried, cracked skin bilateral lower extremities, Erythema overlying coccyx , no skin breakdown noted Extremities: No Cyanosis, 1+ edema BLE, Pulses 2+ dorsalis pedis Psych: Normal mood, pleasant, conversant - Assessment and Plan (1) Sepsis Current Visit: Yes Status: Acute Assessment and Plan: - Likely secondary to pneumonia - Treatment initiated for Healthcare Associated Pneumonia, now on vancomycin/ levaquin/cefepime, will d/c levaquin due to risk of confusion and QT prolongation and vanc - Blood cultures positive for group B strep - Likely her pneumonia is aspiration in origin, will get speech consult to evaluate for aspiration risk given history of Alzheimers - Lactate trended down from 4.4 to 1.9 - Procalcitonin pending - Speech evaluation recommends pureed diet and swallow study (2) Hospital-acquired pneumonia Current Visit: No Status: Acute Assessment and Plan: - Continuing Vanc/Cefepime/Levaquin - May be more aspiration pneumonia given location of Left upper lobe and aspiration risk (3) Urinary tract infection Current Visit: Yes Status: Suspected Assessment and Plan: - Questionable whether sepsis is stemming from UTI or pneumonia - On antibiotics covering both (4) Fever Current Visit: Yes Status: Acute Assessment and Plan: - Afebrile since admission, in ER was 102.7 - Will continue to monitor and repeat blood cultures should it develop (5) HTN (hypertension) Current Visit: Yes Status: Chronic Assessment and Plan: - Continues on home lisinopril 10mg and lasix 40mg (6) Elevated creatine kinase Current Visit: Yes Status: Acute Assessment and Plan: - 577 on admission - Continuing LR @ 75mL/hour (7) Diabetes mellitus Current Visit: Yes Status: Acute Assessment and Plan: - On sliding scale insulin - Will continue to monitor BMP (8) Sacral decubitus ulcer Current Visit: Yes Status: Acute (9) DVT prophylaxis Current Visit: Yes Status: Acute Assessment and Plan: - On heparin SQ - Time Spent with Patient Total time spent is greater than 50% in coordination of care (as documented) at patient's floor/unit and/or counseling patient: 25 - 35 minutes Internal Medicine: Result - Labs CBC & Chem 7: 07/23/18 03:46 07/23/18 16:22 Labs: Short CBC 07/23/18 Range/Units 03:46 WBC 9.4 D (4.3-11.1) K/mcL Hgb 9.3 L D (11.5-15.4) g/dL Hct 29.9 L (35.3-44.9) % Plt Count 102 L (140-400) K/mcL Neutrophils # 7.6 (1.6-8.9) K/mcL BMP 07/23/18 03:46 Sodium 138 Potassium 3.9 Chloride 105 Carbon Dioxide 27 BUN 30 H Creatinine 1.33 H Glucose 157 H Calcium 8.2 L Cardiac Enzymes 07/23/18 Range/Units 03:46 Troponin I 0.06 H* (< 0.04) ng/mL - ABG Interpretation ABG results: PT/INR, D-dimer PT 13.3 Seconds (9.4-12.1) H 07/22/18 06:05 Consult Discharge Plan - Plan Referrals: Santana Novoa MD [Primary Care Provider] - <Chris Hernandez - Last Filed: 07/23/18 18:13> Hospitalist Progress Note - Encounter Date of Encounter: 07/23/18 - Exam Vitals: Temp Pulse Resp BP Pulse Ox 98.3 F 71 16 140/50 100 07/23/18 16:38 07/23/18 16:38 07/23/18 16:38 07/23/18 16:38 07/23/18 16:38 - Assessment and Plan (1) Urinary tract infection Current Visit: Yes Status: Suspected (2) HTN (hypertension) Current Visit: Yes Status: Chronic (3) DVT prophylaxis Current Visit: Yes Status: Acute (4) Pneumonia Current Visit: Yes Status: Acute (5) Sepsis Current Visit: Yes Status: Suspected (6) Diabetes mellitus Current Visit: Yes Status: Acute (7) Dementia Current Visit: Yes Status: Chronic (8) Abnormal CT scan, head Current Visit: Yes Status: Acute (9) Sacral decubitus ulcer Current Visit: Yes Status: Acute - Time Spent with Patient Total time spent is greater than 50% in coordination of care (as documented) at patient's floor/unit and/or counseling patient: Internal Medicine: Result - Labs CBC & Chem 7: 07/23/18 03:46 07/23/18 16:22 Labs: Short CBC 07/23/18 Range/Units 03:46 WBC 9.4 D (4.3-11.1) K/mcL Hgb 9.3 L D (11.5-15.4) g/dL Hct 29.9 L (35.3-44.9) % Plt Count 102 L (140-400) K/mcL Neutrophils # 7.6 (1.6-8.9) K/mcL BMP 07/23/18 07/23/18 03:46 16:22 Sodium 138 135 L Potassium 3.9 4.4 Chloride 105 103 Carbon Dioxide 27 27 BUN 30 H 30 H Creatinine 1.33 H 1.29 H Glucose 157 H 214 H Calcium 8.2 L 8.0 L Cardiac Enzymes 07/23/18 Range/Units 03:46 Troponin I 0.06 H* (< 0.04) ng/mL - ABG Interpretation ABG results: PT/INR, D-dimer PT 13.3 Seconds (9.4-12.1) H 07/22/18 06:05 - Attending Attestation I examined this patient and my medical decision-making was reviewed with the Resident Physician Dr. Pagan. I agree with the documented findings, disposition and treatment plan as described except to the extent set forth below. Ms. Gibbs is a 87 year old female patient with history of diabetes, hypertension who was brought to the ER from her care home facility with complaints of altered mental status, fever and shortness of breath. Her CXR showed left upper and lower lobe pneumonia. She was admitted in the hospital and started her on empirical abx. Gen: A, A, O x 3 Chest; Diminshed BS b/l, no ronchi, no rales Heart ; S1S2+ RRR No murmurs a/p 1. Acute pneumonia - mostly bacterial also concerning for aspiration PNA cont Cefepime and Vancomycin d/c Levaquin due to her cardiac arrythamias on monitor 2. Acute NSVT had 30 sec of NSVT on monitor however 12 lead EKG showed NSR HR @ 71 will check K + and Mg+ Pt is asymptomatic <Shari Pagan - Last Filed: 07/23/18 18:04> (3) Urinary tract infection Qualifiers: Urinary tract infection type: acute cystitis Hematuria presence: with hematuria Qualified Code(s): N30.01 - Acute cystitis with hematuria (4) Fever Qualifiers: Fever type: unspecified Qualified Code(s): R50.9 - Fever, unspecified (5) HTN (hypertension) Qualifiers: Hypertension type: essential hypertension Qualified Code(s): I10 - Essential (primary) hypertension (7) Diabetes mellitus Qualifiers: Diabetes mellitus type: type 2 Diabetes mellitus buttermaker continuous churn insulin use: without buttermaker continuous churn use Diabetes mellitus complication status: with hyperglycemia Qualified Code(s): E11.65 - Type 2 diabetes mellitus with hyperglycemia (8) Sacral decubitus ulcer Qualifiers: Pressure injury stage: unspecified pressure injury stage Qualified Code(s): L89.159 - Pressure ulcer of sacral region, unspecified stage <Chris Hernandez - Last Filed: 07/23/18 18:13> (1) Urinary tract infection Qualifiers: Urinary tract infection type: acute cystitis Hematuria presence: with hematuria Qualified Code(s): N30.01 - Acute cystitis with hematuria (2) HTN (hypertension) Qualifiers: Hypertension type: essential hypertension Qualified Code(s): I10 - Essential (primary) hypertension (4) Pneumonia Qualifiers: Pneumonia type: due to methicillin-resistant Staphylococcus aureus (MRSA) Laterality: left Lung location: upper lobe of lung Qualified Code(s): J15.212 - Pneumonia due to Methicillin resistant Staphylococcus aureus (5) Sepsis Qualifiers: Sepsis type: methicillin resistant Staphylococcus aureus Qualified Code(s): A41.02 - Sepsis due to Methicillin resistant Staphylococcus aureus (6) Diabetes mellitus Qualifiers: Diabetes mellitus type: type 2 Diabetes mellitus mcfp insulin use: without mcfp use Diabetes mellitus complication status: with hyperglycemia Qualified Code(s): E11.65 - Type 2 diabetes mellitus with hyperglycemia (7) Dementia Qualifiers: Dementia type: unspecified type Dementia behavioral disturbance: without behavioral disturbance Qualified Code(s): F03.90 - Unspecified dementia without behavioral disturbance (9) Sacral decubitus ulcer Qualifiers: Pressure injury stage: unspecified pressure injury stage Qualified Code(s): L89.159 - Pressure ulcer of sacral region, unspecified stage
[2018-07-23] MEDS ORDERED: Aminoglycoside Consult 1 EACH MC ONE (15:30)
[2018-07-23 17:12] LABS: Magnesium 1.8 mg/dL (1.6-2.6); Potassium 4.4 mEq/L (3.5-5.1)
[2018-07-24 05:46] LABS: Calcium 8.4 mg/dL (8.6-10.3); Magnesium 1.9 mg/dL (1.6-2.6); Potassium 4.2 mEq/L (3.5-5.1)
[2018-07-24] MEDS: *HR* Heparin 5,000 UNIT/ML VIAL SQ SCH ×2 (07:00→18:02)
[2018-07-24] MEDS: Insulin LISPRO 300 UNITS/3 ML VIAL SQ SCH ×4 (09:30→21:52)
[2018-07-24] MEDS: Aspirin Enteric Coated 325 MG Tablet PO SCH (09:31)
[2018-07-24] MEDS: Multivit/Ca/Min/Fe/FA 1 TAB TABLET PO SCH (09:32)
[2018-07-24] MEDS: OLOPATADINE HCL OP SCH (09:32)
--- NOTE | 2018-07-24 10:03 | Internal Med Progress Note ---
<Shari Pagan - Last Filed: 07/24/18 16:17> Hospitalist Progress Note - Encounter Date of Encounter: 07/24/18 Time of Encounter: 15:36 - Subjective Interval History: Ms. Gibbs is an 87 yo F with history of Alzheimers, CAD, COPD, HTN, DM, CHF, and ME per medical records who was sent from [facility] to the ED on 07/22/18 due to fever and AMS. She was found to have a UTI, fever to 102.7, WBC count of 24.5 , CK of 577, and troponin of 0.06. Chest XR revealed left upper lobe consolidation and possible left lower consolidation. CT head revealed low attentuation signal of the right cerebellar hemisphere. She was started on vancomycin/levaquin/cefepime for HAP and UTI. Blood cultures grrew Strep agalactiae and urine cultures grew gram negative rods. Given her history it was determined her pneumonia more likely is aspiration related thus her antibiotics were tailored to cefepime and levaquin. On 07/23 she had a few runs of non sustained VTach therefore levaquin was discontinued. Today the patient states she is doing well and without complaint. She states she is breathing in shallow breaths but denies any chest pain. She has had a bowel movement and has urinated since removal of her catheter without pain. - Exam Vitals: Temp Pulse Resp BP Pulse Ox 98.7 F 66 18 145/97 96 07/24/18 07:07 07/24/18 07:07 07/24/18 07:07 07/24/18 07:07 07/24/18 07:07 Exam: Vitals reviewed. General: white female in no acute distress. On 3L NC. Answers questions appropriately. Alert and oriented x3 today. Pleasant and conversant Neck: No JVD, trachea midline HEENT: PERRL, normocephalic, atraumatic Cardiac: Regular Rate and Rhythm, Normal S1 and S2, No murmurs appreciated Pulmonary: Mild crackles and wheezing throughout. No rhonchi. Abdomen: soft, obese, no tenderness. no bruits, no guarding, Neuro: Alert and responsive, No focal deficits noted Vascular: Normal capillary refill Skin: Dried, cracked skin bilateral lower extremities, Erythema overlying coccyx , no skin breakdown noted Extremities: No Cyanosis, 1+ edema BLE, Pulses 2+ dorsalis pedis Psych: Normal mood, pleasant, conversant - Assessment and Plan (1) Sepsis Current Visit: Yes Status: Acute Assessment and Plan: - Likely secondary to pneumonia - Treatment initiated for Healthcare Associated Pneumonia with vancomycin/ levaquin/cefepime. Levaquin and Vancomycin discontinued yesterday due to risk of QT prolongation. Will likely leave on Cefdinir per discussion with pharmacist due to sensitivities and her pencillin allergy. - Blood cultures positive for group B strep and urine cultures positive for S. agalactiae and E. coli - Lactate trended down from 4.4 to 1.9 - Procalcitonin 3.73 (2) Aspiration pneumonia Current Visit: Yes Status: Acute Assessment and Plan: - Likely her pneumonia is aspiration in origin, speech recommended barium swallow which was normal - Now on nectar thick and pureed diet (3) Urinary tract infection Current Visit: Yes Status: Suspected Assessment and Plan: - Urine culture grew E. coli and Group B strep - Will utilize antibiotics for coverage of urine and blood cultures, ID recommends cefdinir (4) Fever Current Visit: Yes Status: Acute Assessment and Plan: - afebrile since admission (5) HTN (hypertension) Current Visit: Yes Status: Chronic Assessment and Plan: - On home lisinopril 10mg and lasix 40mg (6) Elevated creatine kinase Current Visit: Yes Status: Acute Assessment and Plan: - Given 2L LR (7) Diabetes mellitus Current Visit: Yes Status: Acute Assessment and Plan: - Continues on sliding scale insulin - Daily BMP (8) Sacral decubitus ulcer Current Visit: Yes Status: Acute Assessment and Plan: - Unstageable, continue nursing protocol with turning and dressing as needed (9) DVT prophylaxis Current Visit: Yes Status: Acute Assessment and Plan: - On heparin SQ - Time Spent with Patient Total time spent is greater than 50% in coordination of care (as documented) at patient's floor/unit and/or counseling patient: Internal Medicine: Result - Labs CBC & Chem 7: 07/24/18 12:18 07/24/18 04:56 Labs: BMP 07/23/18 07/24/18 16:22 04:56 Sodium 135 L 138 Potassium 4.4 4.2 Chloride 103 104 Carbon Dioxide 27 28 BUN 30 H 26 H Creatinine 1.29 H 1.15 Glucose 214 H 151 H Calcium 8.0 L 8.4 L - ABG Interpretation ABG results: PT/INR, D-dimer PT 13.3 Seconds (9.4-12.1) H 07/22/18 06:05 Consult Discharge Plan - Plan Referrals: Santana Novoa MD [Primary Care Provider] - <Chris Hernandez - Last Filed: 07/24/18 16:52> Hospitalist Progress Note - Encounter Date of Encounter: 07/24/18 - Exam Vitals: Temp Pulse Resp BP Pulse Ox 97.7 F 75 22 156/76 97 07/24/18 15:23 07/24/18 15:23 07/24/18 15:23 07/24/18 15:23 07/24/18 15:23 - Assessment and Plan (1) Urinary tract infection Current Visit: Yes Status: Suspected (2) HTN (hypertension) Current Visit: Yes Status: Chronic (3) DVT prophylaxis Current Visit: Yes Status: Acute (4) Pneumonia Current Visit: Yes Status: Acute (5) Sepsis Current Visit: Yes Status: Suspected (6) Diabetes mellitus Current Visit: Yes Status: Acute (7) Dementia Current Visit: Yes Status: Chronic (8) Abnormal CT scan, head Current Visit: Yes Status: Acute (9) Sacral decubitus ulcer Current Visit: Yes Status: Acute - Time Spent with Patient Total time spent is greater than 50% in coordination of care (as documented) at patient's floor/unit and/or counseling patient: Internal Medicine: Result - Labs CBC & Chem 7: 07/24/18 12:18 07/24/18 04:56 Labs: Short CBC 07/24/18 Range/Units 12:18 WBC 6.6 (4.3-11.1) K/mcL Hgb 10.4 L (11.5-15.4) g/dL Hct 33.0 L (35.3-44.9) % Plt Count 118 L (140-400) K/mcL Neutrophils # 4.0 (1.6-8.9) K/mcL BMP 07/23/18 07/24/18 16:22 04:56 Sodium 135 L 138 Potassium 4.4 4.2 Chloride 103 104 Carbon Dioxide 27 28 BUN 30 H 26 H Creatinine 1.29 H 1.15 Glucose 214 H 151 H Calcium 8.0 L 8.4 L - ABG Interpretation ABG results: PT/INR, D-dimer PT 13.3 Seconds (9.4-12.1) H 07/22/18 06:05 - Impressions Impressions Videofluoroscopic Swallow 07/24/18 17:15 IMPRESSION: Laryngeal penetration without aspiration. Please see separate speech pathology report for full discussion of findings and recommendations. D/ / Guillaume iWlkes MD / Guillaume Wilkes MD Interpreting Provider: Guillaume Wilkes MD - Attending Attestation I examined this patient and my medical decision-making was reviewed with the Resident Physician Dr. Pagan. I agree with the documented findings, disposition and treatment plan as described except to the extent set forth below. Ms. Gibbs is a 87 year old female patient with history of diabetes, hypertension who was brought to the ER from her [facility] facility with complaints of altered mental status, fever and shortness of breath. Her CXR showed left upper and lower lobe pneumonia. She was admitted in the hospital and started her on empirical abx. She is more alert and awake today. Denied any CP / SOB. Feels better today Gen: A, A Chest; Diminshed BS b/l, no ronchi, no rales Heart ; S1S2+ RRR No murmurs a/p 1. Acute pneumonia - mostly bacterial also concerning for aspiration PNA cont Cefepime d/c Levaquin due to her cardiac arrhythmias on monitor 2. Acute UTI - E. Coli and Group B Strep 3. Acute bacteremia with Group B Strep - due to UTI Cont Cefepime 4. Acute NSVT had 30 sec of NSVT on monitor y/d however 12 lead EKG showed NSR HR @ 71 Pt is asymptomatic <Shari Pagan - Last Filed: 07/24/18 16:17> (1) Sepsis Qualifiers: Sepsis type: Streptococcus group B Qualified Code(s): A40.1 - Sepsis due to streptococcus, group B (3) Urinary tract infection Qualifiers: Urinary tract infection type: acute cystitis Hematuria presence: with hematuria Qualified Code(s): N30.01 - Acute cystitis with hematuria (4) Fever Qualifiers: Fever type: unspecified Qualified Code(s): R50.9 - Fever, unspecified (5) HTN (hypertension) Qualifiers: Hypertension type: essential hypertension Qualified Code(s): I10 - Essential (primary) hypertension (7) Diabetes mellitus Qualifiers: Diabetes mellitus type: type 2 Diabetes mellitus shelter insulin use: without overlock elastic attacher use Diabetes mellitus complication status: with hyperglycemia Qualified Code(s): E11.65 - Type 2 diabetes mellitus with hyperglycemia (8) Sacral decubitus ulcer Qualifiers: Pressure injury stage: unspecified pressure injury stage Qualified Code(s): L89.159 - Pressure ulcer of sacral region, unspecified stage <Chirs Hernandez - Last Filed: 07/24/18 16:52> (1) Urinary tract infection Qualifiers: Urinary tract infection type: acute cystitis Hematuria presence: with hematuria Qualified Code(s): N30.01 - Acute cystitis with hematuria (2) HTN (hypertension) Qualifiers: Hypertension type: essential hypertension Qualified Code(s): I10 - Essential (primary) hypertension (4) Pneumonia Qualifiers: Pneumonia type: due to methicillin-resistant Staphylococcus aureus (MRSA) Laterality: left Lung location: upper lobe of lung Qualified Code(s): J15.212 - Pneumonia due to Methicillin resistant Staphylococcus aureus (5) Sepsis Qualifiers: Sepsis type: methicillin resistant Staphylococcus aureus Qualified Code(s): A41.02 - Sepsis due to Methicillin resistant Staphylococcus aureus (6) Diabetes mellitus Qualifiers: Diabetes mellitus type: type 2 Diabetes mellitus shelter insulin use: without shelter use Diabetes mellitus complication status: with hyperglycemia Qualified Code(s): E11.65 - Type 2 diabetes mellitus with hyperglycemia (7) Dementia Qualifiers: Dementia type: unspecified type Dementia behavioral disturbance: without behavioral disturbance Qualified Code(s): F03.90 - Unspecified dementia without behavioral disturbance (9) Sacral decubitus ulcer Qualifiers: Pressure injury stage: unspecified pressure injury stage Qualified Code(s): L89.159 - Pressure ulcer of sacral region, unspecified stage
[2018-07-24 12:47] LABS: Basophils % 0.5 %; Eosinophils # 0.4 K/mcL (0.0-0.6); Eosinophils % 5.5 %; Hemoglobin 10.4 g/dL (11.5-15.4); Immature Granulocytes % 0.5 % (0-4); Lymphocytes # 1.5 K/mcL (0.6-4.6); Mean Corpuscular HGB Conc 31.5 g/dL (31.6-35.5); Mean Corpuscular Hemoglobin 28.5 pg (28.0-33.3); Mean Corpuscular Volume 90.4 fL (83.0-100.0); Mean Platelet Volume 10.3 fL (9.4-12.4); Monocytes # 0.6 K/mcL (0.0-1.3); Monocytes % 9.1 %; Platelet Count 118 K/mcL (140-400); Red Blood Count 3.65 M/mcL (3.82-4.97); Red Cell Distribution Width 14.7 % (11.5-14.5); Segmented Neutrophils % 61.4 %
[2018-07-24] MEDS: Nystatin POWDER 30 GM BOTTLE TP SCH ×2 (14:33→21:56)
[2018-07-24] MEDS ORDERED: Cefepime HCl 2,000 MG in Water for inj. (sterile) 20 ML 20 ML IVP SCH (17:00)
[2018-07-24] MEDS ORDERED: Cefepime HCl 1,000 MG in Water for inj. (sterile) 20 ML 20 ML IVP SCH (17:00)
[2018-07-25] MEDS: *HR* Heparin 5,000 UNIT/ML VIAL SQ SCH (07:16)
[2018-07-25 07:22] VITALS: BP 154/54
[2018-07-25] MEDS: Insulin LISPRO 300 UNITS/3 ML VIAL SQ SCH ×2 (08:14→11:44)
[2018-07-25] MEDS: Aspirin Enteric Coated 325 MG Tablet PO SCH (08:25)
[2018-07-25] MEDS: Multivit/Ca/Min/Fe/FA 1 TAB TABLET PO SCH (08:25)
[2018-07-25] MEDS: OLOPATADINE HCL OP SCH (08:26)
[2018-07-25] MEDS: Nystatin POWDER 30 GM BOTTLE TP SCH (08:26)
--- NOTE | 2018-07-25 12:56 | Discharge Summary ---
<Jeronimo Rushing - Last Filed: 07/25/18 19:19> - NOTES TO OUTPATIENT PROVIDER Notes to Outpatient Provider: Patient discharged with PO cefdinir for HCAP pneumonia and UTI. Date of Encounter: 07/25/18 Time of Encounter: 09:30 - Discharge Diagnosis (1) Urinary tract infection Priority: Primary Status: Suspected Assessment and Plan: On Vanc and zosyn in hospital Discharged on PO cefdinir Patient not having complaints of dysuria, frequency, or hesitancy Qualifiers: Urinary tract infection type: acute cystitis Hematuria presence: with hematuria Qualified Code(s): N30.01 - Acute cystitis with hematuria (2) Pneumonia Priority: Primary Status: Acute Assessment and Plan: HCAP vs aspiration On vanc/zosyn/levaquin in hospital Discharged on PO cefdinir Qualifiers: Pneumonia type: due to methicillin-resistant Staphylococcus aureus (MRSA) Laterality: left Lung location: upper lobe of lung Qualified Code(s): J15.212 - Pneumonia due to Methicillin resistant Staphylococcus aureus (3) HTN (hypertension) Priority: Secondary Status: Chronic Assessment and Plan: BP 154/54 Continue home medications Qualifiers: Hypertension type: essential hypertension Qualified Code(s): I10 - Essential (primary) hypertension (4) Sepsis Priority: Primary Status: Resolved Assessment and Plan: 2/2 PNA vs UTI On Abx coverage Resolved Qualifiers: Sepsis type: methicillin resistant Staphylococcus aureus Qualified Code(s) : A41.02 - Sepsis due to Methicillin resistant Staphylococcus aureus (5) Diabetes mellitus Priority: Secondary Status: Acute Assessment and Plan: Continue home medications Qualifiers: Diabetes mellitus type: type 2 Diabetes mellitus adjunct faculty for medical terminology insulin use: without adjunct faculty for medical terminology use Diabetes mellitus complication status: with hyperglycemia Qualified Code(s): E11.65 - Type 2 diabetes mellitus with hyperglycemia (6) Dementia Priority: Secondary Status: Chronic Qualifiers: Dementia type: unspecified type Dementia behavioral disturbance: without behavioral disturbance Qualified Code(s): F03.90 - Unspecified dementia without behavioral disturbance Hospital course: 87 y/o female presented to the clinic on 07/22/2018 with altered mental status, SOB, and fever. Fever of 103, hypoxic, and not oriented to time or place. Chest x-ray showed infiltrates in left upper lung field indicative of pneumonia. CT negative. Started on vancomycin, Levaquin/cefepime for HCAP and UTI. Blood cultures positive for GBS in the blood and GBS and E. coli in urine. Further workup indicated likely aspiration pneumonia. Patient had QT prolongation and Vtach therefore vancomycin and levaquin discontinued. Speech eval recommended mechanically soft and nectar thick fluids for aspiration pneumonia. Barium swallow study showed normal oral phase of swallowing, laryngeal penetration w/o aspiration evidence, bulky anterior osteophyte formation C-C5 indicating mild posterior compression of cervical esophagus. Continued cefepime treatment until discharge. Pt given speech therapy and educated on diet recommendation and purpose. Trials of thermal stimulation also ordered to assess penetration/ aspiration. Pt with no complaints, diffuse expiratory wheezes still present. Pt will be discharged to [facility] with Cefdinir for sepsis secondary to pneumonia and UTI. Discharge discussed with: patient - Time Spent with Patient Total time spent providing and/or coordinating discharge services: - Discharge Medications Prescriptions: Cefdinir [Omnicef] 300 mg PO BID #10 capsule Home Medications: Calcium Carbonate [Calcium] 1,000 mg PO DAILY 11/08/16 [History] [place]-3/Dha/Epa/Fish Oil [Fish Oil 1,000 mg Softgel] 1,000 mg PO DAILY 11/08/16 [History] Ascorbate Calcium [Vitamin C] 500 mg PO DAILY 12/15/16 [History] Aspirin [Ecotrin] 325 mg PO DAILY 12/15/16 [History] Furosemide [Lasix] 40 mg PO DAILY 07/22/18 [History] Lisinopril [Zestril] 10 mg PO DAILY 07/22/18 [History] Multivitamin [One Daily Essential] 1 tab PO DAILY 07/22/18 [History] Olopatadine HCl 1 drop BOTH EYES DAILY 07/22/18 [History] Potassium Chloride 20 meq PO DAILY 07/22/18 [History] Ranitidine HCl [Acid Gang Miner] 150 mg PO BID 07/22/18 [History] Cefdinir [Omnicef] 300 mg PO BID #10 capsule 07/25/18 [Rx] Allergies/Adverse Reactions: 3 Allergy/AdvReac Type Severity Reaction Status Date / Time Penicillins Allergy Hives Verified 07/22/18 08:05 sertraline [From Zoloft] Allergy See Verified 07/22/18 08:05 Comments alprazolam [From Xanax] AdvReac See Verified 07/22/18 08:05 Comments dicyclomine [From Bentyl] AdvReac See Verified 07/22/18 08:05 Comments etodolac AdvReac See Verified 07/22/18 08:05 Comments iodine AdvReac Gastrointestinal Verified 07/22/18 08:05 Upset Date of admission: 07/22/18 08:46 Primary care physician: Santana Novoa MD Consults: 07/22/18 11:05 Consult to Channel Layer [CONS] Routine Reason for SW Consult: ER admission, patient lives at [facility]. Jefferson Rouse is [place]. 07/23/18 11:54 Consult to Speech Therapy [CONS] Routine Comment: Evaluate, develop and implement POC Reason for Consult: h/o alzheimers, aspiration risk Call Completed: No 07/24/18 11:29 Consult to Physical Therapy [CONS] Routine Comment: Evaluate, develop and implement POC Reason for Consult: aspiration risk, h/o dementia Does patient have active BEDREST order?: No Is patient medically & hemodynamically stable?: Yes Discharging clinician: Jeroniom Rushing Anticipated date of discharge: 07/25/18 - Constitutional Vitals: Temp Pulse Resp BP Pulse Ox 98.1 F 67 17 154/54 97 07/25/18 07:21 07/25/18 07:21 07/25/18 07:21 07/25/18 07:21 07/25/18 07:21 General appearance: Present: cooperative, A&O X 3, pleasant Exam: no acute distress - Respiratory Respiratory exam: Present: wheezes - Cardiovascular Cardiovascular exam: Present: RRR, +S1, +S2 - GI/Abdominal GI/Abdominal exam: Present: soft, no peritoneal signs - Extremities Exam Extremities exam: Present: warm, radial pulses palpable and symmetrical - Neurological Exam Neurological exam: Present: alert, no focal deficits - Psychiatric Psychiatric exam: Present: normal affect, normal mood - Patient Status Disposition: Transfer Intermediate Care Fac Condition: Fair Functional capacity at discharge: uses cane/walker Overall status at discharge: patient is progressing back to baseline - Discharge Instructions Follow Up With: Santana Novoa MD [Primary Care Provider] - Forms: ED Satisfaction Letter - Diet and Activity Activity: increase activity as tolerated Diet: advance to your usual diet <Chris Hernandez - Last Filed: 07/26/18 08:24> Date of Encounter: 07/25/18 - Discharge Diagnosis (1) Urinary tract infection Status: Suspected Qualifiers: Urinary tract infection type: acute cystitis Hematuria presence: with hematuria Qualified Code(s): N30.01 - Acute cystitis with hematuria (2) HTN (hypertension) Status: Chronic Qualifiers: Hypertension type: essential hypertension Qualified Code(s): I10 - Essential (primary) hypertension (3) Pneumonia Status: Acute Qualifiers: Pneumonia type: due to methicillin-resistant Staphylococcus aureus (MRSA) Laterality: left Lung location: upper lobe of lung Qualified Code(s): J15.212 - Pneumonia due to Methicillin resistant Staphylococcus aureus (4) Sepsis Status: Resolved Qualifiers: Sepsis type: methicillin resistant Staphylococcus aureus Qualified Code(s) : A41.02 - Sepsis due to Methicillin resistant Staphylococcus aureus (5) Diabetes mellitus Status: Acute Qualifiers: Diabetes mellitus type: type 2 Diabetes mellitus detention insulin use: without adjunct faculty for medical terminology use Diabetes mellitus complication status: with hyperglycemia Qualified Code(s): E11.65 - Type 2 diabetes mellitus with hyperglycemia (6) Dementia Status: Chronic Qualifiers: Dementia type: unspecified type Dementia behavioral disturbance: without behavioral disturbance Qualified Code(s): F03.90 - Unspecified dementia without behavioral disturbance Hospital course: Ms. Gibbs is a 87 year old female - Time Spent with Patient Total time spent providing and/or coordinating discharge services: Date of admission: 07/22/18 08:46 Primary care physician: Santana Novoa MD Consults: 07/22/18 11:05 Consult to Channel Layer [CONS] Routine Reason for SW Consult: ER admission, patient lives at [facility]. [place]. 07/23/18 11:54 Consult to Speech Therapy [CONS] Routine Comment: Evaluate, develop and implement POC Reason for Consult: h/o alzheimers, aspiration risk Call Completed: No 07/24/18 11:29 Consult to Physical Therapy [CONS] Routine Comment: Evaluate, develop and implement POC Reason for Consult: aspiration risk, h/o dementia Does patient have active BEDREST order?: No Is patient medically & hemodynamically stable?: Yes - Constitutional Vitals: Temp Pulse Resp BP Pulse Ox 98.1 F 67 17 154/54 97 07/25/18 07:21 07/25/18 07:21 08/24/18 07:21 07/25/18 07:21 07/25/18 07:21 - Attending Attestation I examined this patient and my medical decision-making was reviewed with the Resident Physician Dr. Rushing on 07/25/18. I agree with the documented findings, disposition and treatment plan as described except to the extent set forth below. Ms. Gibbs is a 87 year old female patient with history of diabetes, hypertension who was brought to the ER from her care home facility with complaints of altered mental status, fever and shortness of breath. Her CXR showed left upper and lower lobe pneumonia. She was admitted in the hospital and started her on empirical abx. She is more alert and awake today. Denied any CP / SOB. Feels better today Gen: A, A Chest; Diminished BS b/l, no ronchi, no rales Heart ; S1S2+ RRR No murmurs a/p 1. Acute pneumonia - mostly bacterial switched to PO Omnicef 2. Acute UTI - E. Coli and Group B Strep 3. Acute bacteremia with Group B Strep - due to UTI switched to PO Omnicef Medically stable to d/c ECF
--- NOTE | 2018-07-25 14:11 | Physician Discharge Referral ---
ExtendedCare Referral Info Transfer To: ECF Provider in Charge after Transfer: PCP Institutional Level of Care: Skilled - Diagnosis (1) Urinary tract infection Status: Suspected (2) HTN (hypertension) Status: Chronic (3) DVT prophylaxis Status: Acute (4) Pneumonia Status: Acute (5) Sepsis Status: Suspected (6) Diabetes mellitus Status: Acute (7) Dementia Status: Chronic (8) Abnormal CT scan, head Status: Acute (9) Sacral decubitus ulcer Status: Acute - Transfer Medications Prescriptions: Cefdinir [Omnicef] 300 mg PO DAILY 7 Days #7 capsule Home Medications: Calcium Carbonate [Calcium] 1,000 mg PO DAILY 11/08/16 [History] [place]-3/Dha/Epa/Fish Oil [Fish Oil 1,000 mg Softgel] 1,000 mg PO DAILY 11/08/16 [History] Ascorbate Calcium [Vitamin C] 500 mg PO DAILY 12/15/16 [History] Aspirin [Ecotrin] 325 mg PO DAILY 12/15/16 [History] Furosemide [Lasix] 40 mg PO DAILY 07/22/18 [History] Lisinopril [Zestril] 10 mg PO DAILY 07/22/18 [History] Multivitamin [One Daily Essential] 1 tab PO DAILY 07/22/18 [History] Olopatadine HCl 1 drop BOTH EYES DAILY 07/22/18 [History] Potassium Chloride 20 meq PO DAILY 07/22/18 [History] Ranitidine HCl [Acid Aerospace Technician] 150 mg PO BID 07/22/18 [History] Cefdinir [Omnicef] 300 mg PO DAILY 7 Days #7 capsule 07/25/18 [Rx] Allergies/Adverse Reactions: 3 Allergy/AdvReac Type Severity Reaction Status Date / Time Penicillins Allergy Hives Verified 07/22/18 08:05 sertraline [From Zoloft] Allergy See Verified 07/22/18 08:05 Comments alprazolam [From Xanax] AdvReac See Verified 07/22/18 08:05 Comments dicyclomine [From Bentyl] AdvReac See Verified 07/22/18 08:05 Comments etodolac AdvReac See Verified 07/22/18 08:05 Comments iodine AdvReac Gastrointestinal Verified 07/22/18 08:05 Upset - Respiratory Orders Smoking Cessation: Smoking cessation has been advised. For more information, call the [place] Tobacco Quit Line at 3-263-WVVT-NOW. CERTIFICATION: I certify that the transfer of the above named patient to an Extended Care Facility is necessary for the continuing treatment of the diagnosis listed. The above information is true and accurate reflection of patient's current condition. Confidential - Redisclosure prohibited without a patient's written consent.
--- NOTE | 2018-07-25 18:43 | Electrocardiograph Report ---
[place] [id number] Test Date: 2018-07-23 Pat Name: Angelita Gibbs Department: 111 Room: 2N2 Gender: F Welding Machine Tender: : 1930 Requested By: Chris Hernandez Order Number: [id number] Reading MD: Reno Matson Measurements Intervals [place] Rate: 71 P: 65 VA: 182 QRS: 4 QRSD: 97 T: 42 QT: 372 QTc: 394 Interpretive Statements SINUS RHYTHM WITH SINUS ARRHYTHMIA Electronically Signed On 07-25-2018 18:42:04 EDT by Reno Matson
== END 2018-07-25 15:31 | DRG 871 ==
LOC: 2NENU 05:51 → EMEROOARM 05:51 → 2NENU 09:27
PROVIDERS: ADMIT Internal Medicine; ATTEND Internal Medicine